=== PATIENT | male | born 1950 | race Caucasian/White ===

== ENCOUNTER → 2020-12-13 09:25 | Outpatient (BNVA) | payer MEDICARE, MEDICAID, SELFPAY | PROVIDERS: PCP Internal Medicine; Visit Provider Nurse Practitioner Family | DX: M16.11 Unilateral primary osteoarthritis, right hip (principal) | CPT/HCPCS: 99202 ==

== ENCOUNTER → 2021-01-03 09:51 | Outpatient (BNVA) | payer MEDICARE, MEDICAID, SELFPAY | PROVIDERS: PCP Internal Medicine; Visit Provider Nurse Practitioner Family | DX: M16.11 Unilateral primary osteoarthritis, right hip (principal) | CPT/HCPCS: 99212 ==

== ENCOUNTER → 2021-01-14 10:09 | Outpatient (BNVA) | payer MEDICARE, MEDICAID, SELFPAY | PROVIDERS: PCP Internal Medicine; Visit Provider Internal Medicine Cardiovascular Disease | DX: I25.10 Atherosclerotic heart disease of native coronary artery without angina pectoris (principal); I10 Essential (primary) hypertension | CPT/HCPCS: 99212 ==

== ENCOUNTER → 2021-01-16 09:56 | Outpatient (BNVA) | payer MEDICARE, MEDICAID, SELFPAY | PROVIDERS: PCP Internal Medicine; Visit Provider Family Medicine Adult Medicine | DX: M24.851 Other specific joint derangements of right hip, not elsewhere classified (principal) | CPT/HCPCS: Q3014 ==

== ENCOUNTER → 2021-02-11 09:58 | Outpatient (BNVA) | payer MEDICARE, MEDICAID, SELFPAY | PROVIDERS: PCP Nurse Practitioner Family; Visit Provider Nurse Practitioner Family | DX: M16.11 Unilateral primary osteoarthritis, right hip (principal); Z51.81 Encounter for therapeutic drug level monitoring | CPT/HCPCS: 99212 ==

== ENCOUNTER 2021-03-11 10:05 | Outpatient (REF) | payer MEDICARE, MEDICAID, SELFPAY ==
[2021-03-11 14:05] LABS: Magnesium 2.2 mg/dL (1.6-2.6); Potassium 4.2 mmol/L (3.3-5.1)
== END 2021-03-11 10:06 | disposition home or self-care (01) ==
LOC: HO.10HDL 10:05
PROVIDERS: PCP Nurse Practitioner Family; Visit Provider Nurse Practitioner Family
DX: M16.11 Unilateral primary osteoarthritis, right hip (principal); A05.9 Bacterial foodborne intoxication, unspecified; I25.10 Atherosclerotic heart disease of native coronary artery without angina pectoris; I10 Essential (primary) hypertension; E78.5 Hyperlipidemia, unspecified; F17.210 Nicotine dependence, cigarettes, uncomplicated; Z88.8 Allergy status to other drugs, medicaments and biological substances; Z87.898 Personal history of other specified conditions
CPT/HCPCS: 36415; 83735; 84132; 99212

== ENCOUNTER → 2021-04-08 10:15 | Outpatient (REF) | payer MEDICARE, MEDICAID, SELFPAY ==
--- NOTE | 2021-04-08 11:13 | ECG_ITS ---
Test Reason : 287.898 Blood Pressure : / mmHG Vent. Rate : 064 BPM Atrial Rate : 064 BPM P-R Int : 196 ms QRS Dur : 102 ms QT Int : 434 ms P-R-T Axes : 009 026 073 degrees QTc Int : 447 ms Normal sinus rhythm Nonspecific ST and T wave abnormality Abnormal ECG When compared with ECG of 01-FEB-2017 09:53, Vent. rate has decreased BY 31 BPM Criteria for Inferior infarct are no longer Present ST no longer depressed in Anterior leads T wave inversion no longer evident in Anterior leads Referred By: Vidya Jackson Electronically Signed By:ELEUTERIO SANTOS
== END ==
LOC: HO.CARD 10:15
PROVIDERS: PCP Internal Medicine; Visit Provider Nurse Practitioner Family
DX: M24.851 Other specific joint derangements of right hip, not elsewhere classified (principal); M16.11 Unilateral primary osteoarthritis, right hip; Z87.898 Personal history of other specified conditions
CPT/HCPCS: 93005; 99212

== ENCOUNTER → 2021-05-06 10:09 | Outpatient (BNVA) | payer MEDICARE, MEDICAID, SELFPAY | PROVIDERS: Visit Provider Family Medicine Adult Medicine | DX: M16.11 Unilateral primary osteoarthritis, right hip (principal) | CPT/HCPCS: 99212 ==

== ENCOUNTER → 2021-06-03 10:01 | Outpatient (BNVA) | payer MEDICARE, MEDICAID, SELFPAY | PROVIDERS: Visit Provider Family Medicine Adult Medicine | DX: G89.29 Other chronic pain (principal); M24.851 Other specific joint derangements of right hip, not elsewhere classified | CPT/HCPCS: 99212 ==

== ENCOUNTER → 2021-07-03 09:43 | Outpatient (BNVA) | payer MEDICARE, MEDICAID, SELFPAY | PROVIDERS: Visit Provider Family Medicine Adult Medicine | DX: M16.11 Unilateral primary osteoarthritis, right hip (principal); G89.29 Other chronic pain | CPT/HCPCS: 99212 ==

== ENCOUNTER → 2021-07-21 10:24 | Outpatient (BNVA) | payer MEDICARE, MEDICAID, SELFPAY | PROVIDERS: Visit Provider Internal Medicine Cardiovascular Disease | DX: I25.10 Atherosclerotic heart disease of native coronary artery without angina pectoris (principal); I10 Essential (primary) hypertension | CPT/HCPCS: 99212 ==

== ENCOUNTER → 2021-07-31 09:49 | Outpatient (BNVA) | payer MEDICARE, MEDICAID, SELFPAY | PROVIDERS: Visit Provider Family Medicine Adult Medicine | DX: Z51.81 Encounter for therapeutic drug level monitoring (principal); M16.11 Unilateral primary osteoarthritis, right hip; G89.29 Other chronic pain | CPT/HCPCS: 99212 ==

== ENCOUNTER → 2021-08-28 09:54 | Outpatient (BNVA) | payer MEDICARE, MEDICAID, SELFPAY | PROVIDERS: PCP Internal Medicine; Visit Provider Family Medicine Adult Medicine | DX: M16.11 Unilateral primary osteoarthritis, right hip (principal); G89.29 Other chronic pain; Z79.899 Other long term (current) drug therapy | CPT/HCPCS: 99212 ==

== ENCOUNTER → 2021-10-02 09:48 | Outpatient (BNVA) | payer MEDICARE, MEDICAID, SELFPAY | PROVIDERS: PCP Internal Medicine; Visit Provider Nurse Practitioner Family ==

== ENCOUNTER → 2021-11-05 09:36 | Outpatient (BNVA) | payer MEDICARE, MEDICAID, SELFPAY | PROVIDERS: PCP Internal Medicine; Visit Provider Nurse Practitioner Family | DX: G89.29 Other chronic pain (principal); M16.11 Unilateral primary osteoarthritis, right hip; Z79.891 Long term (current) use of opiate analgesic | CPT/HCPCS: 99212 ==

== ENCOUNTER → 2021-12-03 09:47 | Outpatient (BNVA) | payer MEDICARE, MEDICAID, SELFPAY | PROVIDERS: PCP Internal Medicine; Visit Provider Nurse Practitioner Family | DX: Z51.81 Encounter for therapeutic drug level monitoring (principal); M16.11 Unilateral primary osteoarthritis, right hip; G89.29 Other chronic pain | CPT/HCPCS: 99212 ==

== ENCOUNTER → 2021-12-31 10:30 | Outpatient (BNVA) | payer MEDICARE, MEDICAID, SELFPAY | PROVIDERS: PCP Internal Medicine; Visit Provider Nurse Practitioner Family | CPT/HCPCS: 99211 ==

== ENCOUNTER → 2021-12-31 10:30 | Outpatient (BNVA) | payer MEDICARE, MEDICAID, SELFPAY | PROVIDERS: PCP Internal Medicine; Visit Provider Nurse Practitioner Family | DX: Z13.89 Encounter for screening for other disorder (principal) ==

== ENCOUNTER → 2022-01-15 10:05 | Outpatient (BNVA) | payer MEDICARE, MEDICAID, SELFPAY | PROVIDERS: PCP Internal Medicine; Referring Provider Nurse Practitioner Family; Visit Provider Internal Medicine Cardiovascular Disease | DX: I25.10 Atherosclerotic heart disease of native coronary artery without angina pectoris (principal) | CPT/HCPCS: 93005; 99212 ==

== ENCOUNTER → 2022-02-12 10:32 | Outpatient (BNVA) | payer MEDICARE, MEDICAID, SELFPAY | PROVIDERS: PCP Internal Medicine; Visit Provider Anesthesiology | DX: Z51.81 Encounter for therapeutic drug level monitoring (principal); F11.20 Opioid dependence, uncomplicated | CPT/HCPCS: 99211 ==

== ENCOUNTER → 2022-03-13 10:17 | Outpatient (BNVA) | payer MEDICARE, MEDICAID, SELFPAY | PROVIDERS: PCP Internal Medicine; Visit Provider Nurse Practitioner Family | DX: Z51.81 Encounter for therapeutic drug level monitoring (principal); F11.20 Opioid dependence, uncomplicated; M16.11 Unilateral primary osteoarthritis, right hip; G89.29 Other chronic pain | CPT/HCPCS: 99212 ==

== ENCOUNTER → 2022-04-10 10:15 | Outpatient (BNVA) | payer MEDICARE, MEDICAID, SELFPAY | PROVIDERS: PCP Internal Medicine; Visit Provider Nurse Practitioner Family | DX: Z79.891 Long term (current) use of opiate analgesic (principal) | CPT/HCPCS: 99211 ==

== ENCOUNTER → 2022-04-14 16:41 | Outpatient (BNVA) | payer MEDICARE, MEDICAID, SELFPAY | PROVIDERS: PCP Internal Medicine; Visit Provider Nurse Practitioner Family | DX: M16.11 Unilateral primary osteoarthritis, right hip (principal); G89.29 Other chronic pain; R29.898 Other symptoms and signs involving the musculoskeletal system | CPT/HCPCS: Q3014 ==

== ENCOUNTER → 2022-05-08 09:46 | Outpatient (BNVA) | payer MEDICARE, MEDICAID, SELFPAY | PROVIDERS: PCP Internal Medicine; Visit Provider Nurse Practitioner Family | DX: Z51.81 Encounter for therapeutic drug level monitoring (principal); F11.20 Opioid dependence, uncomplicated; M16.11 Unilateral primary osteoarthritis, right hip; G89.29 Other chronic pain; R29.898 Other symptoms and signs involving the musculoskeletal system | CPT/HCPCS: 99212 ==

== ENCOUNTER → 2022-06-08 09:51 | Outpatient (BNVA) | payer MEDICARE, MEDICAID, SELFPAY | PROVIDERS: PCP Internal Medicine; Visit Provider Nurse Practitioner Family | DX: Z51.81 Encounter for therapeutic drug level monitoring (principal); F11.20 Opioid dependence, uncomplicated | CPT/HCPCS: 99211 ==

== ENCOUNTER → 2022-07-10 10:48 | Outpatient (BNVA) | payer MEDICARE, MEDICAID, SELFPAY | PROVIDERS: PCP Internal Medicine; Visit Provider Nurse Practitioner Family | DX: Z11.0 Encounter for screening for intestinal infectious diseases (principal) | CPT/HCPCS: 99211 ==

== ENCOUNTER → 2022-08-06 08:06 | Outpatient (BNVA) | payer MEDICARE, MEDICAID, SELFPAY | PROVIDERS: PCP Internal Medicine; Visit Provider Nurse Practitioner Family | DX: Z51.81 Encounter for therapeutic drug level monitoring (principal); F11.20 Opioid dependence, uncomplicated; M16.11 Unilateral primary osteoarthritis, right hip; R29.898 Other symptoms and signs involving the musculoskeletal system; R29.6 Repeated falls; G89.29 Other chronic pain | CPT/HCPCS: 99212 ==

== ENCOUNTER → 2022-09-10 08:52 | Outpatient (BNVA) | payer MEDICARE, MEDICAID, SELFPAY | PROVIDERS: PCP Internal Medicine; Visit Provider Nurse Practitioner Family | DX: Z51.81 Encounter for therapeutic drug level monitoring (principal); F11.20 Opioid dependence, uncomplicated; M16.11 Unilateral primary osteoarthritis, right hip; R29.898 Other symptoms and signs involving the musculoskeletal system; G89.29 Other chronic pain | CPT/HCPCS: 99212 ==

== ENCOUNTER → 2022-11-03 09:19 | Outpatient (BNVA) | payer MEDICARE, MEDICAID, SELFPAY | PROVIDERS: PCP Nurse Practitioner Family; Visit Provider Nurse Practitioner Family | DX: G89.29 Other chronic pain (principal); M25.562 Pain in left knee; M16.11 Unilateral primary osteoarthritis, right hip; R29.898 Other symptoms and signs involving the musculoskeletal system; Z79.891 Long term (current) use of opiate analgesic | CPT/HCPCS: 99212 ==

== ENCOUNTER → 2022-12-01 10:29 | Outpatient (BNVA) | payer MEDICARE, MEDICAID, SELFPAY | PROVIDERS: PCP Nurse Practitioner Family; Visit Provider Nurse Practitioner Family | DX: G89.29 Other chronic pain (principal); M25.562 Pain in left knee; M16.11 Unilateral primary osteoarthritis, right hip; R29.898 Other symptoms and signs involving the musculoskeletal system; Z79.891 Long term (current) use of opiate analgesic | CPT/HCPCS: 99212 ==

== ENCOUNTER → 2022-12-29 10:25 | Outpatient (BNVA) | payer MEDICARE, MEDICAID, SELFPAY | PROVIDERS: PCP Nurse Practitioner Family; Visit Provider Nurse Practitioner Family | DX: G89.29 Other chronic pain (principal); M16.11 Unilateral primary osteoarthritis, right hip; M25.562 Pain in left knee; R29.898 Other symptoms and signs involving the musculoskeletal system; Z79.891 Long term (current) use of opiate analgesic | CPT/HCPCS: 99212 ==

== ENCOUNTER → 2023-01-26 10:18 | Outpatient (BNVA) | payer MEDICARE, MEDICAID, SELFPAY | PROVIDERS: PCP Nurse Practitioner Family; Visit Provider Nurse Practitioner Family | DX: Z51.81 Encounter for therapeutic drug level monitoring (principal); F11.20 Opioid dependence, uncomplicated; M16.11 Unilateral primary osteoarthritis, right hip; M25.562 Pain in left knee; R29.898 Other symptoms and signs involving the musculoskeletal system; G89.29 Other chronic pain | CPT/HCPCS: 99212 ==

== ENCOUNTER → 2023-02-23 10:48 | Outpatient (BNVA) | payer MEDICARE, MEDICAID, SELFPAY | PROVIDERS: PCP Nurse Practitioner Family; Visit Provider Nurse Practitioner Family | DX: M16.11 Unilateral primary osteoarthritis, right hip (principal); M25.562 Pain in left knee; G89.29 Other chronic pain; F17.210 Nicotine dependence, cigarettes, uncomplicated; Z95.1 Presence of aortocoronary bypass graft | CPT/HCPCS: 99212 ==

== ENCOUNTER → 2023-03-25 10:15 | Outpatient (BNVA) | payer MEDICARE, MEDICAID, SELFPAY | PROVIDERS: PCP Nurse Practitioner Family; Visit Provider Nurse Practitioner Family | DX: G89.29 Other chronic pain (principal); M16.11 Unilateral primary osteoarthritis, right hip; M25.562 Pain in left knee; R29.898 Other symptoms and signs involving the musculoskeletal system; Z79.891 Long term (current) use of opiate analgesic | CPT/HCPCS: 99212 ==

== ENCOUNTER → 2023-04-23 09:46 | Outpatient (BNVA) | payer MEDICARE, MEDICAID, SELFPAY | PROVIDERS: PCP Nurse Practitioner Family; Visit Provider Nurse Practitioner Family | DX: M16.11 Unilateral primary osteoarthritis, right hip (principal); M25.562 Pain in left knee; G89.29 Other chronic pain; M24.151 Other articular cartilage disorders, right hip; F17.210 Nicotine dependence, cigarettes, uncomplicated; Z95.1 Presence of aortocoronary bypass graft; Z79.891 Long term (current) use of opiate analgesic | CPT/HCPCS: 99212 ==

== ENCOUNTER 2023-05-21 09:53 | Outpatient (AMB) | payer MEDICARE, MEDICAID, SELFPAY ==
--- NOTE | 2023-05-21 09:55 | A.OFFVIS_ITS ---
Intake Vital Signs 05/21/23 10:04 Height 5 ft 4 in Weight 146 lb BMI 25.1 BP 142/67 H Blood Pressure Location Rt brachial Position Sitting Pulse 59 Pulse Source Pulse Oximeter Pulse Oximetry (%) 97 Oxygen Delivery Method Room Air Intake Visit Reasons: Pill count Intake Note: Mac comes in today for a pill count to oxycodone-acetaminophen and a patch count to buprenorphine, patient should have 13 tablets of oxycodone- acetaminophen and presents with 15 tablets which he last took today 05/21/23 at 5am, patches should have 0 and presents with 0 with one currently on which was last placed today 05/21/23 at 5am. Pain today 05/03. Outreach Specialist Required: No Accompanied by: Self / Same As Patient Allergies lisinopril Adverse Reaction (Unknown, Verified 05/21/23 10:05) Nausea HPI HPI Comments History of Present Illness Details Patient returns today for a pill and patch count. This patient is supposed to have #13 pills and #0 Butrans patches according to the medication log signed by the nurses at [facility] for oxycodone-acetaminophen and Butrans patch that was placed on today. In his possession, patient presents with 15 pills and 0 butrans patches. He is wearing one Butrans patch. Patient reports adequate pain relief with his current regimen without noted side effects. Denies any recent cough, cold, infection, fever or other significant changes in medical history since last office visit. Reports his cataracts surgery is scheduled for next month. Denies recent hospitalizations, ER or Urgent Care visits. [facility] Medical History Acute pulmonary embolism Anxiety and depression Atherosclerosis of lower extremity with claudication Bruit of left carotid artery CAD (coronary artery disease) Chronic pain Dyslipidemia History of [place] (myocardial infarction) HTN (hypertension) Occlusion of left carotid artery Other specific joint derangements of right hip, not elsewhere classified Pulmonary embolism Surgical History S/P CABG x 4 Family History Father CHF (congestive heart failure) CVD (cardiovascular disease) Mother Diabetes Social History Household Members Other:: Lives at [place], [place] Housing: Assisted Living Facility Alcohol intake: never Patient Tobacco Use Status: Current everyday Tobacco user Cigarettes Per Day: 5 e-Cigarette/Vaping Use: Never Used Second Hand Smoke Exposure: No Current occupational status: retired 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 Alert and oriented. Mood and affect appropriate. Follows and participates in conversation appropriately. Respiratory effort is unlabored. Able to transition from sit to stand unassisted. Uses cane with ambulation. Psych Appearance: grossly normal Mental Status: mental status grossly normal Speech and movement: Normal speech and movement present Affect: normal affect Attitude: cooperative Thought process: Normal thought process present Thought content: Normal thought content present, suicidality (none), no hallucinations and No Depressive thoughts present Insight: Good insight present (Psych) Judgement: Good judgement present (Psych) Assessment & Plan Assessment & Plan (1) Chronic pain: Code(s): G89.29 - Other chronic pain (2) Osteoarthritis of right hip: Code(s): M16.11 - Unilateral primary osteoarthritis, right hip (3) Left knee pain: Code(s): M25.562 - Pain in left knee (4) Opioid contract exists: Code(s): Z79.891 - 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 Patient brought in paperwork and logs from [facility], which were scanned into chart. [facility] reviewed. Refill for Butrans was not reflected on [facility]Pat, therefore it was verified with patient's pharmacy. There is no evidence of misuse, abuse or diversion at this time. Script for oxycodone is sent with advanced date of 06/03/23 and Butrans patch at 20 mcg/hr script sent today. All questions were answered and patient is in agreement of plan. Follow up in one month for pill/patch count and sooner if needed. Medications: Changed From buprenorphine 20 mcg/hour 1 patch transdermal Q7D 28 days 4 ea 0RF pain G89.29 - Other chronic pain, M16.11 - Unilateral primary osteoarthritis, right hip, M25.562 - Pain in left knee To buprenorphine 20 mcg/hour Partial Fill upon patient request. 1 patch transdermal Q7D 4 ea 0RF pain 28 days G89.29 - Other chronic pain, M16.11 - Unilateral primary osteoarthritis, right hip, M25.562 - Pain in left knee Refilled oxycodone-acetaminophen 5-325 mg 1 tab PO DAILY PRN 30 tabs 0RF pain, severe 30 days G89.29 - Other chronic pain, M16.11 - Unilateral primary osteoarthritis, right hip Coding Level of Care Code Est Pt Level 4 (00753) Diagnoses Chronic pain G89.29 Osteoarthritis of right hip M16.11 Left knee pain M25.562 Opioid contract exists Z79.891
[2023-05-21 10:04] VITALS: BP 142/67; PULSE 59; O2SAT 97; BMI 25.1
== END 2023-05-21 10:16 | disposition home or self-care (01) ==
PROVIDERS: PCP Nurse Practitioner Family; Visit Provider Nurse Practitioner Family
DX: G89.29 Other chronic pain (principal); M16.11 Unilateral primary osteoarthritis, right hip; M25.562 Pain in left knee; Z79.891 Long term (current) use of opiate analgesic
CPT/HCPCS: 99214

== ENCOUNTER → 2023-05-21 09:53 | Outpatient (BNVA) | payer MEDICARE, MEDICAID, SELFPAY | PROVIDERS: PCP Nurse Practitioner Family; Visit Provider Nurse Practitioner Family | DX: G89.29 Other chronic pain (principal); M16.11 Unilateral primary osteoarthritis, right hip; M25.562 Pain in left knee; Z79.891 Long term (current) use of opiate analgesic | CPT/HCPCS: 99212 ==

== ENCOUNTER 2023-06-18 10:01 | Outpatient (AMB) | payer MEDICARE, MEDICAID, SELFPAY ==
--- NOTE | 2023-06-18 09:58 | MHC.OFFVIS ---
Intake Vital Signs 06/18/23 10:09 Height 5 ft 4 in Weight 149 lb BMI 25.6 BP 169/72 H Blood Pressure Location Rt brachial Position Sitting Pulse 57 Pulse Source Pulse Oximeter Pulse Oximetry (%) 96 Oxygen Delivery Method Room Air Intake Visit Reasons: PILL COUNT Intake Note: Ed comes in today for a pill count to oxycodone-acetaminophen and a patch count to buprenorphine. Patient should have 0 patches and presents with 0 patches and one currently on which was last placed today 06/18/23 at 5am. Oxycodone-acetaminophen should have 13 tablets and presents with 17 tablets which he also last took today at 5am. Pain today 06/03. 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 This patient is supposed to have #13 pills and #0 Butrans patches according to the medication log signed by the nurses at [facility] for oxycodone-acetaminophen and Butrans patch that was placed on this morning. In his possession, patient presents with 17 pills and 0 butrans patches. Patient reports mild to moderate pain relief with his current regimen without noted side effects. Denies any recent cough, cold, infection, shortness of breath, fever or other significant changes in medical history since last office visit. Reports his cataracts surgery has been rescheduled for August and December. Denies recent hospitalizations, ER or Urgent Care visits. [facility] Medical History Acute pulmonary embolism Anxiety and depression Atherosclerosis of lower extremity with claudication Bruit of left carotid artery CAD (coronary artery disease) Chronic pain Dyslipidemia History of [place] (myocardial infarction) HTN (hypertension) Occlusion of left carotid artery Other specific joint derangements of right hip, not elsewhere classified Pulmonary embolism Surgical History S/P CABG x 4 Family History Father CHF (congestive heart failure) CVD (cardiovascular disease) Mother Diabetes Social History Household Members Other:: Lives at [place], [place] Housing: Assisted Living Facility Alcohol intake: never Patient Tobacco Use Status: Current everyday Tobacco user Cigarettes Per Day: 5 e-Cigarette/Vaping Use: Never Used Second Hand Smoke Exposure: No Current occupational status: retired 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 Alert and oriented. Mood and affect appropriate. Follows and participates in conversation appropriately. Respiratory effort is unlabored. Able to transition from sit to stand unassisted. Uses cane with ambulation. Back/Spine/Pelvis Cervical Spine: cervical ROM normal and No Cervical spine tenderness Thoracic/Lumbar Spine: pain with thoraco-lumbar ROM, No thoracic spinal tenderness and No lumbar spinal tenderness Pelvis: no buttock tenderness Sacroiliac joints: bilaterally nontender Extrem General: Yes capillary refill normal, Yes no clubbing, cyanosis or edema and Yes no calf tenderness Right lower extremity: hip/thigh (Limited ROM. Right groin pain with limited I/E hip rotations. ) Psych Appearance: grossly normal Mental Status: mental status grossly normal Speech and movement: Normal speech and movement present Affect: normal affect Attitude: cooperative Thought process: Normal thought process present Thought content: Normal thought content present, suicidality (none), no hallucinations and No Depressive thoughts present Insight: Good insight present (Psych) Judgement: Good judgement present (Psych) Assessment & Plan Assessment & Plan (1) Chronic pain: Code(s): G89.29 - Other chronic pain (2) Osteoarthritis of right hip: Code(s): M16.11 - Unilateral primary osteoarthritis, right hip (3) Opioid contract exists: Code(s): Z79.891 - senior care (current) use of opiate analgesic (4) Chronic right hip pain: Code(s): M25.551 - Pain in right hip; G89.29 - Other chronic pain Plan Patient returns today for a medication count. Patient brought in paperwork and logs from [facility], which were scanned into chart. [facility]Pat reviewed. Refills for Butrans and Oxycodone were not reflected on MassPat, therefore both were verified with patient's pharmacy. There is no evidence of misuse, abuse or diversion at this time. Script for oxycodone is sent with advanced date of 07/01/23 and Butrans patch at 20 mcg/hr script sent today. All questions were answered and patient is in agreement of plan. Follow up in one month for pill/patch count and sooner if needed. Medications: Refilled oxycodone-acetaminophen 5-325 mg 1 tab PO DAILY PRN 30 tabs 0RF pain, severe 30 days G89.29 - Other chronic pain, M16.11 - Unilateral primary osteoarthritis, right hip buprenorphine 20 mcg/hour Partial Fill upon patient request. 1 patch transdermal Q7D 4 ea 0RF pain 28 days G89.29 - Other chronic pain, M16.11 - Unilateral primary osteoarthritis, right hip, M25.562 - Pain in left knee Coding Level of Care Code Est Pt Level 4 (34827) Diagnoses Chronic pain G89.29 Osteoarthritis of right hip M16.11 Opioid contract exists Z79.891 Chronic right hip pain M25.551; G89.29
[2023-06-18 10:09] VITALS: BP 169/72; PULSE 57; O2SAT 96; BMI 25.6
== END 2023-06-18 10:18 | disposition home or self-care (01) ==
PROVIDERS: PCP Nurse Practitioner Family; Visit Provider Nurse Practitioner Family
DX: G89.29 Other chronic pain (principal); M16.11 Unilateral primary osteoarthritis, right hip; Z79.891 Long term (current) use of opiate analgesic; M25.551 Pain in right hip
CPT/HCPCS: 99214

== ENCOUNTER → 2023-06-18 10:01 | Outpatient (BNVA) | payer MEDICARE, MEDICAID, SELFPAY | PROVIDERS: PCP Nurse Practitioner Family; Visit Provider Nurse Practitioner Family | DX: G89.29 Other chronic pain (principal); M25.551 Pain in right hip; M16.11 Unilateral primary osteoarthritis, right hip; Z79.891 Long term (current) use of opiate analgesic | CPT/HCPCS: 99212 ==

== ENCOUNTER 2023-07-08 10:09 | Outpatient (AMB) | payer MEDICARE, MEDICAID, SELFPAY ==
--- NOTE | 2023-07-08 10:12 | MHC.PC.OV ---
Vital Signs 07/08/23 10:15 Height 5 ft 4 in Weight 151 lb BMI 25.9 BP 124/60 Blood Pressure Location Lt brachial Position Sitting Pulse 55 Pulse Source Pulse Oximeter Pulse Oximetry (%) 95 Oxygen Delivery Method Room Air Intake Visit Reasons: 6 month follow up Allergies lisinopril Adverse Reaction (Unknown, Verified 07/08/23 10:15) Nausea Tobacco use date assessed: 01/06/23 Fall risk assessment: No Falls in past year Last assessed Fall Risk: 07/08/23 Dental Screening Dental Screen Date: 07/08/23 Did you have a dental visit in the last 12 months?: No Did you have a dental problem in the last 6 months where you did not have access to dental care?: No Was dental information given to patient?: Patient has dentist HPI 6 month follow up HPI Details Pt is here for a pre-op evaluation. He is scheduled to undergo bilat cataract surgery. Pt was previously scheduled for surgery but did not have it. Lab orders placed for unrelated reasons, though not needed for surgical clearance. PT IS CLEAR FOR SURGERY FROM MY STANDPOINT. [facility] Medical History Atherosclerosis of lower extremity with claudication Other specific joint derangements of right hip, not elsewhere classified Chronic pain Pulmonary embolism Acute pulmonary embolism Occlusion of left carotid artery Bruit of left carotid artery Dyslipidemia Anxiety and depression HTN (hypertension) CAD (coronary artery disease) History of [place] (myocardial infarction) Surgical History S/P CABG x 4 Family History Father CHF (congestive heart failure) CVD (cardiovascular disease) Mother Diabetes Social History Household Members Other:: Lives at [place], [place] Housing: Assisted Living Facility Alcohol intake: never Patient Tobacco Use Status: Current everyday Tobacco user Cigarettes Per Day: 5 e-Cigarette/Vaping Use: Never Used Second Hand Smoke Exposure: No Current occupational status: retired Current 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 How often do you have a drink containing alcohol?: Never 3. How often do you have six or more drinks on one occasion?: Never Total Score: 0 Score Reviewed/Action Taken: No TRACY-7 AMB Questionnaire TRACY-7 Date TRACY - 7 assessed: 01/06/23 Source: Developed by Drs. Ray Richards, Farhana Lloyd, Mart Martinez and colleagues, with an educational jennifer from [employer]. Review of Systems Const Denies chills and Denies fever(s) Eyes Denies blurry vision ENT Denies vertigo, Denies dizziness and Denies sore throat Card Denies chest pain at rest, Denies chest pain with activity, Denies diaphoresis, Denies dyspnea and Denies dyspnea on exertion Resp Denies cough, Denies dyspnea, Denies dyspnea on exertion and Denies wheezing GI Denies abdominal pain, Denies melena, Denies hematochezia, Denies constipation, Denies diarrhea and Denies loose stools Denies hematuria Musc Denies numbness and Denies tingling Skin/Breast Denies lesions Neuro Denies vertigo, Denies dizziness, Denies numbness and Denies tingling Psych Denies anxiety, Denies depression, Denies homicidal ideation, Denies suicidal ideation and Denies other (substance abuse) Aller/Immun Denies wheezing Physical exam (Primary Care) Vital Signs: Last Vital Signs Pulse 55 07/08/23 10:15 BP 124/60 07/08/23 10:15 Pulse Ox 95 07/08/23 10:15 Oxygen Delivery Method Room Air 07/08/23 10:15 BMI result Body Mass Index 25.9 Tobacco/Smoking Status: Tobacco use Status Tobacco use date assessed 01/06/23 07/08/23 10:13 Patient Tobacco Use Status Current everyday Tobacco 07/08/23 10:13 e-Cigarette/Vaping Use Never Used 07/08/23 10:13 Thrive Assessment: Date of Thrive Assessment Date Thrive assessed 01/06/23 07/08/23 10:13 Const General: cooperative Nutritional Appearance: well nourished Orientation/consciousness: patient oriented x3 Neck Neck: Yes no lymphadenopathy Resp Other: lungs fairly clear bilat Effort & Inspection: normal respiratory effort Cardio Rate: regular rate Rhythm: regular rhythm Heart sounds: S1 normal heart sound present, S2 normal heart sound present and Murmur heart sound present Neuro General: patient oriented x3 and moves all extremities Psych Appearance: grossly normal Mental Status: mental status grossly normal Speech and movement: Normal speech and movement present Affect: normal affect Attitude: cooperative Thought process: Normal thought process present Thought content: Normal thought content present Insight: Good insight present (Psych) Judgement: Good judgement present (Psych) Assessment and Plan Assessment & Plan (1) Preop examination: Code(s): Z01.818 - Encounter for other preprocedural examination Plan The patient agreed to the use of a medical transcription supervisor for this encounter. Scribed for LORENZO Carrillo by Brianna Caballero medical transcription supervisor, on 07/08/2023 at 10:35 EST. Coding Level of Care Code Est Pt Prev Care >65y(78174) Diagnoses Preop examination Z01.818
[2023-07-08 10:15] VITALS: BP 124/60; PULSE 55; O2SAT 95; BMI 25.9
== END 2023-07-08 11:17 | disposition home or self-care (01) ==
PROVIDERS: PCP Nurse Practitioner Family; Visit Provider Nurse Practitioner Family
DX: H26.9 Unspecified cataract (principal); Z01.818 Encounter for other preprocedural examination
CPT/HCPCS: 99213

== ENCOUNTER 2023-07-16 09:33 | Outpatient (AMB) | payer MEDICARE, MEDICAID, SELFPAY ==
--- NOTE | 2023-07-16 09:38 | A.OFFVIS_ITS ---
Intake Vital Signs 07/16/23 09:53 Height 5 ft 4 in Weight 147 lb BMI 25.2 BP 155/66 H Blood Pressure Location Rt brachial Position Sitting Pulse 58 Pulse Source Pulse Oximeter Pulse Oximetry (%) 97 Oxygen Delivery Method Room Air Intake Visit Reasons: PILL COUNT Intake Note: Mac comes in today for a pill count to oxycodone-acetaminophen and a patch count to buprenorphine, patient should have 0 patches and presents with 0 patches with 1 currently on which was last placed on 07/16/23, oxycodone- acetaminophen should have 15 tablets and presents with 20 tablets which he last took today 07/16/23 at 5am. Pain today 5/10. 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 This patient is supposed to have #15 pills and #0 Butrans patches according to the medication log signed by the nurses at [facility] for oxycodone-acetaminophen and Butrans patch that was placed on this morning. In his possession, patient presents with #20 pills and #0 butrans patches. Patient reports adequate pain relief on his current regimen without noted side effects. Denies any recent cough, fever, cold, infection, shortness of breath, nausea, constipation, dizziness, weakness, or other significant changes in medical history since last office visit. Reports his cataracts surgery has been scheduled for August and December. Denies recent hospitalizations, ER or Urgent Care visits. [facility] Medical History Atherosclerosis of lower extremity with claudication Other specific joint derangements of right hip, not elsewhere classified Chronic pain Pulmonary embolism Acute pulmonary embolism Occlusion of left carotid artery Bruit of left carotid artery Dyslipidemia Anxiety and depression HTN (hypertension) CAD (coronary artery disease) History of [place] (myocardial infarction) Surgical History S/P CABG x 4 Family History Father CHF (congestive heart failure) CVD (cardiovascular disease) Mother Diabetes Social History Household Members Other:: Lives at [place], [place] Housing: Assisted Living Facility Alcohol intake: never Patient Tobacco Use Status: Current everyday Tobacco user Cigarettes Per Day: 5 e-Cigarette/Vaping Use: Never Used Second Hand Smoke Exposure: No Current occupational status: retired 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 Alert and oriented. Mood and affect appropriate. Follows and participates in conversation appropriately. Respiratory effort is unlabored. Able to transition from sit to stand unassisted. Uses cane with ambulation. Psych Appearance: grossly normal Mental Status: mental status grossly normal Speech and movement: Normal speech and movement present Affect: normal affect Attitude: cooperative Thought process: Normal thought process present Thought content: Normal thought content present, suicidality (none), no hallucinations and No Depressive thoughts present Insight: Good insight present (Psych) Judgement: Good judgement present (Psych) Results Reviewed Results Reviewed: No imaging available for review. Assessment & Plan Assessment & Plan (1) Chronic pain: Code(s): G89.29 - Other chronic pain (2) Osteoarthritis of right hip: Code(s): M16.11 - Unilateral primary osteoarthritis, right hip (3) Opioid contract exists: Code(s): Z79.891 - skilled nursing (current) use of opiate analgesic (4) Chronic right hip pain: Code(s): M25.551 - Pain in right hip; G89.29 - Other chronic pain Plan Patient returns today for a medication count. Patient brought in paperwork and logs from [facility], which were scanned into chart. [facility]Pat reviewed, oxycodone refill on 07/01/23 was not reflected on MassPat, confirmed with [facility]. There is no evidence of misuse, abuse or diversion at this time. Script for oxycodone is sent with advanced date of 07/30/23 and Butrans patch at 20 mcg/hr script sent today. Patient has upcoming cataracts surgery in August and December. All questions were answered and patient is in agreement of plan. Follow up in one month for pill/patch count and sooner if needed. Medications: Refilled buprenorphine 20 mcg/hour Partial Fill upon patient request. 1 patch transdermal Q7D 4 ea 0RF pain 28 days G89.29 - Other chronic pain, M16.11 - Unilateral primary osteoarthritis, right hip, M25.562 - Pain in left knee oxycodone-acetaminophen 5-325 mg 1 tab PO DAILY PRN 30 tabs 0RF pain, severe 30 days G89.29 - Other chronic pain, M16.11 - Unilateral primary osteoarthritis, right hip Coding Level of Care Code Est Pt Level 4 (43908) Diagnoses Chronic pain G89.29 Osteoarthritis of right hip M16.11 Opioid contract exists Z79.891 Chronic right hip pain M25.551; G89.29
[2023-07-16 09:53] VITALS: BP 155/66; PULSE 58; O2SAT 97; BMI 25.2
== END 2023-07-16 10:24 | disposition home or self-care (01) ==
PROVIDERS: PCP Nurse Practitioner Family; Visit Provider Nurse Practitioner Family
DX: G89.29 Other chronic pain (principal); M16.11 Unilateral primary osteoarthritis, right hip; Z79.891 Long term (current) use of opiate analgesic
CPT/HCPCS: 99214

== ENCOUNTER → 2023-07-16 09:33 | Outpatient (BNVA) | payer MEDICARE, MEDICAID, SELFPAY | PROVIDERS: PCP Nurse Practitioner Family; Visit Provider Nurse Practitioner Family | DX: G89.29 Other chronic pain (principal); M25.551 Pain in right hip; M16.11 Unilateral primary osteoarthritis, right hip; Z79.891 Long term (current) use of opiate analgesic | CPT/HCPCS: 99212 ==

== ENCOUNTER 2023-08-13 11:26 | Outpatient (AMB) | payer MEDICARE, MEDICAID, SELFPAY ==
--- NOTE | 2023-08-13 11:31 | MHC.OFFVIS ---
Intake Vital Signs 08/13/23 11:45 Height 5 ft 4 in BP 144/67 H Blood Pressure Location Lt brachial Position Sitting Pulse 95 Pulse Source Pulse Oximeter Pulse Oximetry (%) 97 Oxygen Delivery Method Room Air Intake Visit Reasons: PILL COUNT Intake Note: Mac comes in today for a pill count to oxycodone-acetaminophen and a patch count to buprenorphine. Patient should have 16 tablets of oxycodone-acetaminophen and presents with 22 tablets which he last took today 08/13/23, Buprenorphone should have 0 and presents with 0 patches and one currently on which was last placed today 08/13/23. Pain today 05/03. Clinical Trials Systems Administrator Required: No Accompanied by: Self / Same As Patient Allergies lisinopril Adverse Reaction (Unknown, Verified 08/13/23 11:46) Nausea HPI HPI Comments History of Present Illness Details Patient returns today for a pill and patch count. This patient is supposed to have #16 pills and #0 Butrans patches according to the medication log signed by the nurses at [facility] for oxycodone-acetaminophen and Butrans patch that was placed on today. In his possession, patient presents with #22 pills and #0 butrans patches. Patient reports mild pain relief on his current regimen without noted side effects. He notes increased pain in his right hip with cold rainy weather. Denies any recent cough, fever, cold, infection, shortness of breath, nausea, constipation, dizziness, weakness, or other significant changes in medical history since last office visit. Reports his cataracts surgery has been scheduled for this August and next year in December. He is aware to notify our office if there is any changes in is procedure dates if they will overlap with his pill count visits. [facility] Medical History Atherosclerosis of lower extremity with claudication Other specific joint derangements of right hip, not elsewhere classified Chronic pain Pulmonary embolism Acute pulmonary embolism Occlusion of left carotid artery Bruit of left carotid artery Dyslipidemia Anxiety and depression HTN (hypertension) CAD (coronary artery disease) History of [place] (myocardial infarction) Surgical History S/P CABG x 4 Family History Father CHF (congestive heart failure) CVD (cardiovascular disease) Mother Diabetes Social History Household Members Other:: Lives at [place], [place] Housing: Assisted Living Facility Alcohol intake: never Patient Tobacco Use Status: Current everyday Tobacco user Cigarettes Per Day: 5 e-Cigarette/Vaping Use: Never Used Second Hand Smoke Exposure: No Current occupational status: retired Current 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 Alert and oriented. Mood and affect appropriate. Follows and participates in conversation appropriately. Respiratory effort is unlabored. Able to transition from sit to stand unassisted. Uses cane with ambulation. Back/Spine/Pelvis Cervical Spine: cervical ROM normal and No Cervical spine tenderness Thoracic/Lumbar Spine: pain with thoraco-lumbar ROM, No thoracic spinal tenderness and No lumbar spinal tenderness Pelvis: no buttock tenderness Sacroiliac joints: bilaterally nontender Extrem General: Yes capillary refill normal, Yes no clubbing, cyanosis or edema and Yes no calf tenderness Right lower extremity: hip/thigh (Limited ROM. Right groin pain with limited I/E hip rotations. ) Psych Appearance: grossly normal Mental Status: mental status grossly normal Speech and movement: Normal speech and movement present Affect: normal affect Attitude: cooperative Thought process: Normal thought process present Thought content: Normal thought content present, suicidality (none), no hallucinations and No Depressive thoughts present Insight: Good insight present (Psych) Judgement: Good judgement present (Psych) Assessment & Plan Assessment & Plan (1) Chronic pain: Code(s): G89.29 - Other chronic pain (2) Osteoarthritis of right hip: Code(s): M16.11 - Unilateral primary osteoarthritis, right hip (3) Opioid contract exists: Code(s): 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 Patient brought in paperwork and logs from [facility], which were scanned into chart. [employer] reviewed. There is no evidence of misuse, abuse or diversion at this time. Script for oxycodone is sent with advanced date of 08/29/23 and Butrans patch at 20 mcg/hr script sent today. Patient has upcoming cataracts surgery in August and December and will notify our office with any changes in procedure dates. All questions were answered and patient is in agreement of plan. Follow up in one month for pill/patch count and sooner if needed. Medications: Refilled buprenorphine 20 mcg/hour Partial Fill upon patient request. 1 patch transdermal Q7D 4 ea 0RF pain 28 days G89.29 - Other chronic pain, M16.11 - Unilateral primary osteoarthritis, right hip, M25.562 - Pain in left knee oxycodone-acetaminophen 5-325 mg 1 tab PO DAILY PRN 30 tabs 0RF pain, severe 30 days G89.29 - Other chronic pain, M16.11 - Unilateral primary osteoarthritis, right hip Coding Level of Care Code Est Pt Level 4 (45076) Diagnoses Chronic pain G89.29 Osteoarthritis of right hip M16.11 Opioid contract exists Z79.891 Chronic right hip pain M25.551; G89.29
[2023-08-13 11:45] VITALS: BP 144/67; PULSE 95; O2SAT 97
== END 2023-08-13 11:49 | disposition home or self-care (01) ==
PROVIDERS: PCP Nurse Practitioner Family; Visit Provider Nurse Practitioner Family
DX: G89.29 Other chronic pain (principal); M16.11 Unilateral primary osteoarthritis, right hip; Z79.891 Long term (current) use of opiate analgesic; M25.551 Pain in right hip
CPT/HCPCS: 99214

== ENCOUNTER → 2023-08-13 11:26 | Outpatient (BNVA) | payer MEDICARE, MEDICAID, SELFPAY | PROVIDERS: PCP Nurse Practitioner Family; Visit Provider Nurse Practitioner Family | DX: M16.11 Unilateral primary osteoarthritis, right hip (principal); M25.551 Pain in right hip; G89.29 Other chronic pain; F17.210 Nicotine dependence, cigarettes, uncomplicated; Z79.891 Long term (current) use of opiate analgesic | CPT/HCPCS: 99212 ==

== ENCOUNTER 2023-09-10 10:52 | Outpatient (AMB) | payer MEDICARE, MEDICAID, SELFPAY ==
--- NOTE | 2023-09-10 10:57 | MHC.OFFVIS ---
Intake Vital Signs 09/10/23 11:29 Height 5 ft 4 in Weight 147 lb BMI 25.2 BP 121/59 L Blood Pressure Location Rt brachial Position Sitting Pulse 61 Pulse Source Pulse Oximeter Pulse Oximetry (%) 98 Oxygen Delivery Method Room Air Intake Visit Reasons: PILL COUNT/Confirmed Intake Note: Mac comes in today for a pill count to oxycodone-acetaminophen and a patch count to buprenorphine. Again patient was not given proper documentation for count by [facility]. Per phone call with Mayela from [facility] patient has 24 tablets of oxycodone-acetaminophen which was last given today 09/10/23 at 6 am and 0 patches of buprenorphine which was placed at also today 09/10/23. Waiting to receive proper documentation to be faxed from [facility]. Manager Corporate Marketing Required: No Accompanied by: Self / Same As Patient Allergies lisinopril Adverse Reaction (Unknown, Verified 09/10/23 11:04) Nausea HPI HPI Comments History of Present Illness Details Patient returns today for a pill and patch count. This patient is supposed to have #19 pills and #0 Butrans patches according to the medication log signed by the nurses at [facility] for oxycodone-acetaminophen and Butrans patch that was placed on today. In his possession, patient presents with #24 pills and #0 butrans patches. Patient reports adequate analgesia on his current regimen without noted side effects. He notes increased pain in his right hip with cold rainy weather. Denies any recent cough, fever, cold, infection, shortness of breath, nausea, constipation, dizziness, weakness, or other significant changes in medical history since last office visit. [facility] Medical History Atherosclerosis of lower extremity with claudication Other specific joint derangements of right hip, not elsewhere classified Chronic pain Pulmonary embolism Acute pulmonary embolism Occlusion of left carotid artery Bruit of left carotid artery Dyslipidemia Anxiety and depression HTN (hypertension) CAD (coronary artery disease) History of [place] (myocardial infarction) Surgical History S/P CABG x 4 Family History Father CHF (congestive heart failure) CVD (cardiovascular disease) Mother Diabetes Social History Household Members Other:: Lives at [facility] [place] Housing: Assisted Living Facility Alcohol intake: never Patient Tobacco Use Status: Current everyday Tobacco user Cigarettes Per Day: 5 e-Cigarette/Vaping Use: Never Used Second Hand Smoke Exposure: No Current occupational status: retired 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 No acute distress. Alert and oriented. Mood and affect appropriate. Follows and participates in conversation appropriately. Respiratory effort is unlabored. No cough. Able to transition from sit to stand unassisted. Uses cane with ambulation. Psych Appearance: grossly normal Mental Status: mental status grossly normal Speech and movement: Normal speech and movement present Affect: normal affect Attitude: cooperative Thought process: Normal thought process present Thought content: Normal thought content present, suicidality (none), no hallucinations and No Depressive thoughts present Insight: Good insight present (Psych) Judgement: Good judgement present (Psych) Assessment & Plan Assessment & Plan (1) Chronic pain: Code(s): G89.29 - Other chronic pain (2) Osteoarthritis of right hip: Code(s): M16.11 - Unilateral primary osteoarthritis, right hip (3) Opioid contract exists: Code(s): 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 Patient brought in paperwork and logs from [facility], which were scanned into chart. [employer] reviewed. There is no evidence of misuse, abuse or diversion at this time. Script for oxycodone is sent with advanced date of 09/28/23 and Butrans patch at 20 mcg/hr script sent today. Patient has pending cataracts surgery and will notify our office with any changes in procedure dates. All questions were answered and patient is in agreement of plan. Follow up in one month for pill/patch count and sooner if needed. Medications: Refilled oxycodone-acetaminophen 5-325 mg 1 tab PO DAILY 30 days PRN 30 tabs 0RF pain, severe G89.29 - Other chronic pain, M16.11 - Unilateral primary osteoarthritis, right hip buprenorphine 20 mcg/hour Partial Fill upon patient request. 1 patch transdermal Q7D 28 days 4 ea 0RF pain G89.29 - Other chronic pain, M16.11 - Unilateral primary osteoarthritis, right hip, M25.562 - Pain in left knee Coding Level of Care Code Est Pt Level 4 (64311) Diagnoses Chronic pain G89.29 Osteoarthritis of right hip M16.11 Opioid contract exists Z79.891 Chronic right hip pain M25.551; G89.29
[2023-09-10 11:29] VITALS: BP 121/59; PULSE 61; O2SAT 98; BMI 25.2
== END 2023-09-10 11:37 | disposition home or self-care (01) ==
PROVIDERS: PCP Nurse Practitioner Family; Visit Provider Nurse Practitioner Family
DX: G89.29 Other chronic pain (principal); M16.11 Unilateral primary osteoarthritis, right hip; Z79.891 Long term (current) use of opiate analgesic; M25.551 Pain in right hip
CPT/HCPCS: 99214

== ENCOUNTER → 2023-09-10 10:52 | Outpatient (BNVA) | payer MEDICARE, MEDICAID, SELFPAY | PROVIDERS: PCP Nurse Practitioner Family; Visit Provider Nurse Practitioner Family | DX: Z51.81 Encounter for therapeutic drug level monitoring (principal); F11.20 Opioid dependence, uncomplicated; M16.11 Unilateral primary osteoarthritis, right hip; M25.551 Pain in right hip; G89.29 Other chronic pain; Z79.891 Long term (current) use of opiate analgesic | CPT/HCPCS: 99212 ==

== ENCOUNTER 2023-10-08 09:12 | Outpatient (AMB) | payer MEDICARE, MEDICAID, SELFPAY ==
--- NOTE | 2023-10-08 09:14 | MHC.OFFVIS ---
Intake Vital Signs 10/08/23 09:33 Height 5 ft 4 in Weight 146 lb 2 oz BMI 25.1 BP 155/69 H Blood Pressure Location Rt brachial Position Sitting Pulse 60 Pulse Source Pulse Oximeter Pulse Oximetry (%) 98 Oxygen Delivery Method Room Air Intake Visit Reasons: PILL COUNT/lvm Intake Note: Mac comes in today for a pill count to oxycodone-acetaminophen and a patch count to buprenophine. Patient should have 14 tablets of oxycodone-acetaminophen and presents with 27 tablets, buprenorphine should have 0 patches with 1 on but patient states that he does not have any on and the last time it was placed was on 10/01/23. Patient states that he was told that his box was empty and did not have any left. Per the documentation that was provided patient should still have one patch left, per phone call to [facility] they state he does not have any left, what do you want me to do . Project Management Analyst Required: No Accompanied by: Self / Same As Patient Allergies lisinopril Adverse Reaction (Unknown, Verified 10/08/23 09:38) Nausea HPI HPI Comments History of Present Illness Details Patient returns today for a pill and patch count. This patient is supposed to have #14 pills and #0 Butrans patches but have one on according to the medication log signed by the nurses at [facility] for oxycodone-acetaminophen and Butrans patch. In his possession, patient presents with #27 pills and #0 butrans patches and does not have any patches on. Patient reports no patch was placed on this morning at 0400 along with his usual medications. He reports asking his nurse at [facility] for Butrans patch and was told he does not have any. Patient reports he keeps track of his opioid medication on his calendar in his room and was expecting one more patch remaining to be applied today which would be consistent with his nurses log documentation. Our staff has reached out to [facility] this morning at least four times. Unfortunately, nursing service administrator was not available and voicemail was left. Patient reports inadequate analgesia on his current regimen without noted side effects as he did not have Butrans patch since yesterday. Rates his pain at 7-8/10, worse in his right hip due to significant OA. Denies any recent cough, fever, cold, infection, shortness of breath, nausea, constipation, dizziness, weakness, or other significant changes in medical history since last office visit. Patient reports that his right cataract surgery finally happened last month ago and left eye cataract surgery is scheduled for 10/26/23. He is very pleased with outcome of his right eye procedure and able to see much better. [facility] Medical History Atherosclerosis of lower extremity with claudication Other specific joint derangements of right hip, not elsewhere classified Chronic pain Pulmonary embolism Acute pulmonary embolism Occlusion of left carotid artery Bruit of left carotid artery Dyslipidemia Anxiety and depression HTN (hypertension) CAD (coronary artery disease) History of [place] (myocardial infarction) Surgical History S/P CABG x 4 Family History Father CHF (congestive heart failure) CVD (cardiovascular disease) Mother Diabetes Social History Household Members Other:: Lives at [place], [place] Housing: Assisted Living Facility Alcohol intake: never Patient Tobacco Use Status: Current everyday Tobacco user Cigarettes Per Day: 5 e-Cigarette/Vaping Use: Never Used Second Hand Smoke Exposure: No Current occupational status: retired 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 Alert and oriented. Mood and affect appropriate. Follows and participates in conversation appropriately. Respiratory effort is unlabored. Able to transition from sit to stand unassisted. Uses cane with ambulation. Eyes General: appearance normal, both eyes and all related structures Back/Spine/Pelvis Cervical Spine: cervical ROM normal and No Cervical spine tenderness Thoracic/Lumbar Spine: pain with thoraco-lumbar ROM, No thoracic spinal tenderness and No lumbar spinal tenderness Pelvis: no buttock tenderness Sacroiliac joints: bilaterally nontender Extrem General: Yes capillary refill normal, Yes no clubbing, cyanosis or edema and Yes no calf tenderness Right lower extremity: hip/thigh (Limited ROM. Right groin pain with limited I/E hip rotations. ) Psych Appearance: grossly normal Mental Status: mental status grossly normal Speech and movement: Normal speech and movement present Affect: normal affect Attitude: cooperative Thought process: Normal thought process present Thought content: Normal thought content present, suicidality (none), no hallucinations and No Depressive thoughts present Insight: Good insight present (Psych) Judgement: Good judgement present (Psych) Assessment & Plan Assessment & Plan (1) Chronic pain: Code(s): G89.29 - Other chronic pain (2) Osteoarthritis of right hip: Code(s): M16.11 - Unilateral primary osteoarthritis, right hip (3) Opioid contract exists: Code(s): Z79.891 - residential (current) use of opiate analgesic (4) Chronic right hip pain: Code(s): M25.551 - Pain in right hip; G89.29 - Other chronic pain Plan Patient returns today for a medication count. Patient brought in paperwork and logs from [facility], which were scanned into chart. [employer]Pat reviewed. There is no evidence of misuse, abuse or diversion at this time however his documentation is not consistent for Butrans patch and we have call placed to [facility] regarding this inconsistency. Script for oxycodone was sent with advanced date of 11/02/23 and Butrans patch at 20 mcg/hr script sent today. All questions were answered and patient is in agreement of plan. Follow up in one month for pill/patch count and sooner if needed. Medications: Refilled oxycodone-acetaminophen 5-325 mg 1 tab PO DAILY 30 days PRN 30 tabs 0RF pain, severe G89.29 - Other chronic pain, M16.11 - Unilateral primary osteoarthritis, right hip buprenorphine 20 mcg/hour Partial Fill upon patient request. 1 patch transdermal Q7D 4 ea 0RF pain 28 days G89.29 - Other chronic pain, M16.11 - Unilateral primary osteoarthritis, right hip Coding Level of Care Code Est Pt Level 4 (41964) Diagnoses Chronic pain G89.29 Osteoarthritis of right hip M16.11 Opioid contract exists Z79.891 Chronic right hip pain M25.551; G89.29
[2023-10-08 09:33] VITALS: BP 155/69; PULSE 60; O2SAT 98; BMI 25.1
== END 2023-10-08 09:45 | disposition home or self-care (01) ==
PROVIDERS: PCP Nurse Practitioner Family; Visit Provider Nurse Practitioner Family
DX: G89.29 Other chronic pain (principal); M16.11 Unilateral primary osteoarthritis, right hip; Z79.891 Long term (current) use of opiate analgesic; M25.551 Pain in right hip
CPT/HCPCS: 99214

== ENCOUNTER → 2023-10-08 09:12 | Outpatient (BNVA) | payer MEDICARE, MEDICAID, SELFPAY | PROVIDERS: PCP Nurse Practitioner Family; Visit Provider Nurse Practitioner Family | DX: Z51.81 Encounter for therapeutic drug level monitoring (principal); F11.20 Opioid dependence, uncomplicated; M16.11 Unilateral primary osteoarthritis, right hip; M25.551 Pain in right hip; G89.29 Other chronic pain; Z79.891 Long term (current) use of opiate analgesic | CPT/HCPCS: 99212 ==

== ENCOUNTER 2023-11-05 09:30 | Outpatient (AMB) | payer MEDICARE, MEDICAID, SELFPAY ==
--- NOTE | 2023-11-05 09:33 | A.OFFVIS_ITS ---
Intake Vital Signs 11/05/23 09:49 Height 5 ft 4 in Weight 148 lb BMI 25.4 BP 136/64 Blood Pressure Location Rt brachial Position Sitting Pulse 68 Pulse Source Pulse Oximeter Pulse Oximetry (%) 97 Oxygen Delivery Method Room Air Intake Visit Reasons: PILL COUNT/random UDS/confirmed Intake Note: Mac comes in today for a pill count to oxycodone-acetaminophen and a patch count to buprenorphine. Patient should have 39 tablets and presents with 58 tablets which he last took today 11/05/23 at 5 am, buprenorphine should have 0 and presents with 0 with one currently on which was last placed today also at 5am. Ed will also go for a random UDS, aware that he will need to go to the lab on the first floor of this building today 11/05/23 before 12pm. Mac signed updated opioid contract in office today 11/05/23. Signed copy was provided to patient. Chaplain Required: No Accompanied by: Self / Same As Patient Allergies lisinopril Adverse Reaction (Unknown, Verified 11/05/23 09:55) Nausea HPI HPI Comments History of Present Illness Details Patient returns today for a pill and patch count. This patient is supposed to have #39 pills and #0 Butrans patches according to the medication log signed by the nurses at [facility] for oxycodone-acetaminophen and Butrans patch. In his possession, patient presents with #58 pills and #0 butrans patches and has one patch on. Patient reports adequate analgesia on his current regimen without noted side effects. Rates his pain at 5-6/10, with right hip pain due to advanced OA. Denies any recent cough, fever, cold, infection, shortness of breath, nausea, constipation, dizziness, weakness, or other significant changes in medical history since last office visit. Patient reports he completed both cataracts surgeries and is awaiting script for reading glasses. He is very pleased with outcome of his eye procedures and able to see much better. [facility] Medical History Atherosclerosis of lower extremity with claudication Other specific joint derangements of right hip, not elsewhere classified Chronic pain Pulmonary embolism Acute pulmonary embolism Occlusion of left carotid artery Bruit of left carotid artery Dyslipidemia Anxiety and depression HTN (hypertension) CAD (coronary artery disease) History of [place] (myocardial infarction) Surgical History S/P CABG x 4 Family History Father CHF (congestive heart failure) CVD (cardiovascular disease) Mother Diabetes Social History Household Members Other:: Lives at [place], [place] Housing: Assisted Living Facility Alcohol intake: never Patient Tobacco Use Status: Current everyday Tobacco user Cigarettes Per Day: 5 e-Cigarette/Vaping Use: Never Used Second Hand Smoke Exposure: No Current occupational status: retired 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 Alert and oriented. Mood and affect appropriate. Follows and participates in conversation appropriately. Respiratory effort is unlabored. Able to transition from sit to stand unassisted. Uses cane with ambulation. Eyes General: appearance normal, both eyes and all related structures Back/Spine/Pelvis Cervical Spine: cervical ROM normal and No Cervical spine tenderness Thoracic/Lumbar Spine: pain with thoraco-lumbar ROM, No thoracic spinal tenderness and No lumbar spinal tenderness Pelvis: no buttock tenderness Sacroiliac joints: bilaterally nontender Extrem General: Yes capillary refill normal, Yes no clubbing, cyanosis or edema and Yes no calf tenderness Right lower extremity: hip/thigh (Limited ROM. Right groin pain with limited I/E hip rotations. ) Psych Appearance: grossly normal Mental Status: mental status grossly normal Speech and movement: Normal speech and movement present Affect: normal affect Attitude: cooperative Thought process: Normal thought process present Thought content: Normal thought content present, suicidality (none), no hallucinations and No Depressive thoughts present Insight: Good insight present (Psych) Judgement: Good judgement present (Psych) Results Reviewed Results Reviewed: No imaging available for review. Assessment & Plan Assessment & Plan (1) Chronic pain: Code(s): G89.29 - Other chronic pain (2) Osteoarthritis of right hip: Code(s): M16.11 - Unilateral primary osteoarthritis, right hip (3) Opioid contract exists: Code(s): Z79.891 - assisted (current) use of opiate analgesic (4) Chronic right hip pain: Code(s): M25.551 - Pain in right hip; G89.29 - Other chronic pain Plan Patient returns today for a medication count. Patient brought in paperwork and logs from [facility], which were scanned into chart. [employer]Pat reviewed. There is no evidence of misuse, abuse or diversion at this time however his documentation is not consistent for Butrans patch and we have call placed to [facility] regarding this inconsistency. Script for oxycodone was sent with advanced date of 12/31/23 and Butrans patch at 20 mcg/hr script sent today. Will obtain random UDS today. All questions were answered and patient is in agreement of plan. F ollow up in one month for pill/patch count and sooner if needed. Medications: Refilled oxycodone-acetaminophen 5-325 mg 1 tab PO DAILY 30 days PRN 30 tabs 0RF pain, severe G89.29 - Other chronic pain, M16.11 - Unilateral primary osteoarthritis, right hip buprenorphine 20 mcg/hour Partial Fill upon patient request. 1 patch transdermal Q7D 4 ea 0RF pain 28 days G89.29 - Other chronic pain, M16.11 - Unilateral primary osteoarthritis, right hip Coding Level of Care Code Est Pt Level 4 (20485) Diagnoses Chronic pain G89.29 Osteoarthritis of right hip M16.11 Opioid contract exists Z79.891 Chronic right hip pain M25.551; G89.29
[2023-11-05 09:49] VITALS: BP 136/64; PULSE 68; O2SAT 97; BMI 25.4
== END 2023-11-05 10:02 | disposition home or self-care (01) ==
PROVIDERS: PCP Nurse Practitioner Family; Visit Provider Nurse Practitioner Family
DX: G89.29 Other chronic pain (principal); M16.11 Unilateral primary osteoarthritis, right hip; Z79.891 Long term (current) use of opiate analgesic; M25.551 Pain in right hip
CPT/HCPCS: 99214

== ENCOUNTER → 2023-11-05 09:30 | Outpatient (BNVA) | payer MEDICARE, MEDICAID, SELFPAY | PROVIDERS: PCP Nurse Practitioner Family; Visit Provider Nurse Practitioner Family | DX: G89.29 Other chronic pain (principal); M25.551 Pain in right hip; M16.11 Unilateral primary osteoarthritis, right hip; Z79.891 Long term (current) use of opiate analgesic | CPT/HCPCS: 99212 ==

== ENCOUNTER 2023-12-03 09:25 | Outpatient (AMB) | payer MEDICARE, MEDICAID, SELFPAY ==
--- NOTE | 2023-12-03 09:27 | MHC.OFFVIS ---
Intake Vital Signs 12/03/23 09:35 Height 5 ft 4 in Weight 148 lb 6 oz BMI 25.5 BP 122/60 Blood Pressure Location Rt brachial Position Sitting Pulse 77 Pulse Source Pulse Oximeter Pulse Oximetry (%) 98 Oxygen Delivery Method Room Air Intake Visit Reasons: Pill count/confirmed Intake Note: Ed comes in today for a pill count to oxycodone and a patch count to buprenorphine, patient should have 0 tablets of oxycodone and presents with 30 tablets which he last took today 12/03/23, buprenorphine should have 0 patches and resents with 0 patches and one currently on which was last placed today 12/03/23 at 5am. Pain today 6/10. Master Ocean Required: No Accompanied by: Self / Same As Patient Allergies lisinopril Adverse Reaction (Unknown, Verified 12/03/23 09:35) Nausea HPI HPI Comments History of Present Illness Details Patient returns today for a pill and patch count. This patient is supposed to have #0pills and #0 Butrans patches according to the medication log signed by the nurses at [facility] for oxycodone-acetaminophen and Butrans patch. In his possession, patient presents with #30 pills and #0 butrans patches and has one patch on which was place this morning. Patient reports adequate analgesia on his current regimen without noted side effects except increased left leg pain due to a recent fall during a Fire Drill. Patient declined xray or interventional treatments to address his left leg pain. Rates his pain at 6/10, reports his chronic right hip pain due to advanced OA is more troublesome than left side. Denies radicular back pain. Denies any recent cough, fever, cold, infection, shortness of breath, nausea, constipation, dizziness, weakness, or any other significant changes in medical history since last office visit. [facility] Medical History Atherosclerosis of lower extremity with claudication Other specific joint derangements of right hip, not elsewhere classified Chronic pain Pulmonary embolism Acute pulmonary embolism Occlusion of left carotid artery Bruit of left carotid artery Dyslipidemia Anxiety and depression HTN (hypertension) CAD (coronary artery disease) History of [place] (myocardial infarction) Surgical History S/P CABG x 4 Family History Father CHF (congestive heart failure) CVD (cardiovascular disease) Mother Diabetes Social History Household Members Other:: Lives at [place], [place] Housing: Assisted Living Facility Alcohol intake: never Patient Tobacco Use Status: Current everyday Tobacco user Cigarettes Per Day: 5 e-Cigarette/Vaping Use: Never Used Second Hand Smoke Exposure: No Current occupational status: retired 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 Alert and oriented. Mood and affect appropriate. Follows and participates in conversation appropriately. Respiratory effort is unlabored. Able to transition from sit to stand unassisted. Uses cane with ambulation. Back/Spine/Pelvis Cervical Spine: cervical ROM normal and No Cervical spine tenderness Thoracic/Lumbar Spine: thoracic and lumbar spine normal to inspection, Lasegue's sign negative, straight leg raise negative bilaterally, pain with thoraco-lumbar ROM, No thoracic spinal tenderness and lumbar spinal tenderness at L4 and at L5 Pelvis: buttock tenderness on the left Sacroiliac joints: bilaterally tender to palpation Extrem General: Yes capillary refill normal, Yes no clubbing, cyanosis or edema and Yes no calf tenderness Right lower extremity: hip/thigh (Limited ROM. Right groin pain with limited I/E hip rotations. ) Psych Appearance: grossly normal Mental Status: mental status grossly normal Speech and movement: Normal speech and movement present Affect: normal affect Attitude: cooperative Thought process: Normal thought process present Thought content: Normal thought content present, suicidality (none), no hallucinations and No Depressive thoughts present Insight: Good insight present (Psych) Judgement: Good judgement present (Psych) Results Reviewed Results Reviewed: No imaging available for review. Assessment & Plan Assessment & Plan (1) Chronic pain: Code(s): G89.29 - Other chronic pain (2) Osteoarthritis of right hip: Code(s): M16.11 - Unilateral primary osteoarthritis, right hip (3) Opioid contract exists: Code(s): Z79.891 - custodial (current) use of opiate analgesic (4) Chronic right hip pain: Code(s): M25.551 - Pain in right hip; G89.29 - Other chronic pain (5) Recurrent falls: Code(s): R29.6 - Repeated falls Plan Patient returns today for a medication count. Patient brought in paperwork and logs from [facility], which were scanned into chart. [employer]Pat reviewed. There is no evidence of misuse, abuse or diversion at this time and documentation is consistent for Butrans patch and oxycodone. Patient has pending scripts for oxycodone was sent with advanced date of 12/31/23 and Butrans patch at 20 mcg/hr script sent on 11/30/23. Will obtain random serum buprenorphine level today. All questions were answered and patient is in agreement of plan. Follow up in one month for pill/patch count and sooner if needed. Coding Level of Care Code Est Pt Level 4 (97754) Diagnoses Chronic pain G89.29 Osteoarthritis of right hip M16.11 Opioid contract exists Z79.891 Chronic right hip pain M25.551; G89.29 Recurrent falls R29.6
[2023-12-03 09:35] VITALS: BP 122/60; PULSE 77; O2SAT 98; BMI 25.5
== END 2023-12-03 09:43 | disposition home or self-care (01) ==
PROVIDERS: PCP Nurse Practitioner Family; Visit Provider Nurse Practitioner Family
DX: G89.29 Other chronic pain (principal); M16.11 Unilateral primary osteoarthritis, right hip; Z79.891 Long term (current) use of opiate analgesic; M25.551 Pain in right hip; R29.6 Repeated falls
CPT/HCPCS: 99214

== ENCOUNTER → 2023-12-03 09:25 | Outpatient (BNVA) | payer MEDICARE, MEDICAID, SELFPAY | PROVIDERS: PCP Nurse Practitioner Family; Visit Provider Nurse Practitioner Family | DX: Z51.81 Encounter for therapeutic drug level monitoring (principal); M16.11 Unilateral primary osteoarthritis, right hip; M25.551 Pain in right hip; R29.6 Repeated falls; Z79.891 Long term (current) use of opiate analgesic | CPT/HCPCS: 80348; 80362; 99212 ==

== ENCOUNTER 2023-12-03 09:47 | Outpatient (REF) | payer MEDICARE, MEDICAID, SELFPAY ==
[2023-12-10 08:03] LABS: Naloxone NEGATIVE; Norbuprenorphine >2000 (H)
== END 2023-12-03 09:48 | disposition home or self-care (01) ==
LOC: HO.10HDLNP 09:47
PROVIDERS: Visit Provider Nurse Practitioner Family
DX: Z13.89 Encounter for screening for other disorder (principal)
CPT/HCPCS: 80348; 80362

== ENCOUNTER → 2023-12-31 09:42 | Outpatient (BNVA) | payer MEDICARE, MEDICAID, SELFPAY | PROVIDERS: PCP Nurse Practitioner Family; Visit Provider Nurse Practitioner Family | DX: Z51.81 Encounter for therapeutic drug level monitoring (principal); M16.11 Unilateral primary osteoarthritis, right hip; M25.551 Pain in right hip; R29.6 Repeated falls; G89.29 Other chronic pain; Z79.891 Long term (current) use of opiate analgesic | CPT/HCPCS: 99212 ==

== ENCOUNTER 2023-12-31 09:43 | Outpatient (AMB) | payer MEDICARE, MEDICAID, SELFPAY ==
--- NOTE | 2023-12-31 09:44 | A.OFFVIS_ITS ---
Intake Vital Signs 12/31/23 10:00 Height 5 ft 4 in Weight 155 lb BMI 26.6 BP 122/60 Blood Pressure Location Lt brachial Position Sitting Respiration 16 Pulse 58 Pulse Source Pulse Oximeter Pulse Oximetry (%) 99 Oxygen Delivery Method Room Air Intake Visit Reasons: Pill Count Intake Note: Patient comes in for pill count. Reports pain 05/03. Allergies lisinopril Adverse Reaction (Unknown, Verified 12/31/23 10:01) Nausea HPI HPI Comments History of Present Illness Details Patient returns today for a pill and patch count. This patient is supposed to have #0pills and #0 Butrans patches according to the medication log signed by the nurses at [facility] for oxycodone-acetaminophen and Butrans patch. In his possession, patient presents with #2 pills and #0 butrans patches and has one patch on which was place this morning at 0500. Patient reports adequate analgesia on his current regimen without noted side. Denies any recent cough, fever, cold, infection, shortness of breath, nausea, constipation, dizziness, weakness, or any other significant changes in medical history since last office visit. Patient reports he has been walking more and enjoys outdoors and indoor activities since improved vision with recent cataracts surgery. Denies recent falls, trauma or injuries. Ambulates with a cane. Reports right lower extremity weakness due to chronic pain. [facility] Medical History (Updated 12/31/23 @ 10:53 by JET Staples) Atherosclerosis of lower extremity with claudication Other specific joint derangements of right hip, not elsewhere classified Chronic pain Pulmonary embolism Acute pulmonary embolism Occlusion of left carotid artery Bruit of left carotid artery Dyslipidemia Anxiety and depression HTN (hypertension) CAD (coronary artery disease) History of [place] (myocardial infarction) Surgical History (Updated 12/31/23 @ 10:53 by JET Staples) History of cataract surgery S/P CABG x 4 Family History Father CHF (congestive heart failure) CVD (cardiovascular disease) Mother Diabetes Social History Household Members Other:: Lives at [place], [place] Housing: Assisted Living Facility Alcohol intake: never Patient Tobacco Use Status: Current everyday Tobacco user Cigarettes Per Day: 5 e-Cigarette/Vaping Use: Never Used Second Hand Smoke Exposure: No Current occupational status: retired 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 Alert and oriented. Mood and affect appropriate. Follows and participates in conversation appropriately. Respiratory effort is unlabored. Able to transition from sit to stand unassisted. Uses cane with ambulation. Extrem General: Yes capillary refill normal, Yes no clubbing, cyanosis or edema and Yes no calf tenderness Right lower extremity: hip/thigh (Limited ROM due to pain. Right groin pain with limited I/E hip rotations. ) Details: tenderness Location: of the hip Location: laterally and anterolaterally Psych Appearance: grossly normal Mental Status: mental status grossly normal Speech and movement: Normal speech and movement present Affect: normal affect Attitude: cooperative Thought process: Normal thought process present Thought content: Normal thought content present, suicidality (none), no hallucinations and No Depressive thoughts present Insight: Good insight present (Psych) Judgement: Good judgement present (Psych) Results Reviewed Results Reviewed: No imaging available for review. Assessment & Plan Assessment & Plan (1) Osteoarthritis of right hip: Code(s): M16.11 - Unilateral primary osteoarthritis, right hip (2) Opioid contract exists: Code(s): Z79.891 - USP (current) use of opiate analgesic (3) Chronic right hip pain: Code(s): M25.551 - Pain in right hip; G89.29 - Other chronic pain (4) Recurrent falls: Code(s): R29.6 - Repeated falls (5) Chronic pain syndrome: Code(s): G89.4 - Chronic pain syndrome Plan Patient returns today for a medication count. Patient brought in paperwork and logs from [facility], which were scanned into chart. [employer]Pat reviewed. There is no evidence of misuse, abuse or diversion at this time and documentation is consistent for Butrans patch and oxycodone. Refills sent for oxycodone and Butrans patch at 20 mcg/hr today. Recent random serum buprenorphine level and UDS came back concordant. All questions were answered and patient is in agreement of plan. Follow up in one month for pill/patch count and sooner if needed. Medications: Refilled buprenorphine 20 mcg/hour Partial Fill upon patient request. 1 patch transdermal Q7D 4 ea 0RF pain 28 days G89.29 - Other chronic pain, M16.11 - Unilateral primary osteoarthritis, right hip oxycodone-acetaminophen 5-325 mg 1 tab PO DAILY 30 days PRN 30 tabs 0RF pain, severe G89.29 - Other chronic pain, M16.11 - Unilateral primary osteoarthritis, right hip Coding Level of Care Code Est Pt Level 4 (52940) Diagnoses Osteoarthritis of right hip M16.11 Opioid contract exists Z79.891 Chronic right hip pain M25.551; G89.29 Recurrent falls R29.6 Chronic pain syndrome G89.4
[2023-12-31 10:00] VITALS: BP 122/60; PULSE 58; RESP 16; O2SAT 99; BMI 26.6
== END 2023-12-31 10:13 | disposition home or self-care (01) ==
PROVIDERS: PCP Nurse Practitioner Family; Visit Provider Nurse Practitioner Family
DX: G89.4 Chronic pain syndrome (principal); M16.11 Unilateral primary osteoarthritis, right hip; M25.551 Pain in right hip; Z79.891 Long term (current) use of opiate analgesic; R29.6 Repeated falls
CPT/HCPCS: 99214

== ENCOUNTER 2024-01-31 09:52 | Outpatient (AMB) | payer OTHER, SELFPAY ==
--- NOTE | 2024-01-31 09:50 | MHC.OFFVIS ---
Intake Vital Signs 01/31/24 10:02 Height 5 ft 4 in Weight 157 lb BMI 26.9 BP 149/67 H Blood Pressure Location Rt brachial Position Sitting Pulse 61 Pulse Source Pulse Oximeter Pulse Oximetry (%) 96 Oxygen Delivery Method Room Air Intake Visit Reasons: Pill Count Intake Note: Ed comes in today for a pill count to oxycodone-acetaminophen and a patch count to buprenorphine. We are still awaiting paperwork from [facility] to confirm the amount of tablets an patches. Patient should have 0 tablets of oxycodone-acetaminophen and 0 patches of Butrans and one currently on which was placed on 01/28/24. Lapel Padder Required: No Accompanied by: Self / Same As Patient Allergies lisinopril Adverse Reaction (Unknown, Verified 12/31/23 10:01) Nausea HPI HPI Comments History of Present Illness Details Patient returns today for a pill and patch count. This patient is supposed to have #0 pills and #0 Butrans patches according to the medication log signed by the nurses at [facility] for oxycodone-acetaminophen and Butrans patch as well as expected pill and patch count. Patient states he was taking oxycodone on daily basis for chronic hip pain. We are still awaiting additional paperwork from [facility] to confirm this. In his possession, patient presents with #0 pills and #0 Butrans patches and has one patch on which was placed on 01/28/24. Patient reports adequate analgesia on his current regimen without noted side. Denies any recent cough, fever, cold, infection, shortness of breath, nausea, constipation, dizziness, weakness, or any other significant changes in medical history since last office visit. Ambulates with a cane. Reports right lower extremity weakness due to chronic pain. [facility] Medical History Atherosclerosis of lower extremity with claudication Other specific joint derangements of right hip, not elsewhere classified Chronic pain Pulmonary embolism Acute pulmonary embolism Occlusion of left carotid artery Bruit of left carotid artery Dyslipidemia Anxiety and depression HTN (hypertension) CAD (coronary artery disease) History of [place] (myocardial infarction) Surgical History History of cataract surgery S/P CABG x 4 Family History Father CHF (congestive heart failure) CVD (cardiovascular disease) Mother Diabetes Social History Household Members Other:: Lives at [place], [place] Housing: Assisted Living Facility Alcohol intake: never Patient Tobacco Use Status: Current everyday Tobacco user Cigarettes Per Day: 5 e-Cigarette/Vaping Use: Never Used Second Hand Smoke Exposure: No Current occupational status: retired Current occupation: Disabled m,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 Alert and oriented. Mood and affect appropriate. Follows and participates in conversation appropriately. Respiratory effort is unlabored. Able to transition from sit to stand unassisted. Uses cane with ambulation. Extrem General: Yes capillary refill normal, Yes no clubbing, cyanosis or edema and Yes no calf tenderness Right lower extremity: hip/thigh (Limited ROM due to pain. Right groin pain with limited I/E hip rotations. ) Details: tenderness Location: of the hip Location: laterally and anterolaterally Psych Appearance: grossly normal Mental Status: mental status grossly normal Speech and movement: Normal speech and movement present Affect: normal affect Attitude: cooperative Thought process: Normal thought process present Thought content: Normal thought content present, suicidality (none), no hallucinations and No Depressive thoughts present Insight: Good insight present (Psych) Judgement: Good judgement present (Psych) Assessment & Plan Assessment & Plan (1) Osteoarthritis of right hip: Code(s): M16.11 - Unilateral primary osteoarthritis, right hip (2) Opioid contract exists: Code(s): Z79.891 - 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 Patient brought in paperwork and logs from [facility], which were scanned into chart and awaiting additional paperwork. [employer] reviewed. There is no evidence of misuse, abuse or diversion at this time and documentation is consistent for Butrans patch and oxycodone. Refills sent for oxycodone and Butrans patch at 20 mcg/hr and oxycodone-acetaminophen 5-325 mg 1 tab daily prn today. Recent random serum buprenorphine level and UDS came back concordant. All questions were answered and patient is in agreement of plan. Follow up in one month for pill/patch count and sooner if needed. Medications: Refilled oxycodone-acetaminophen 5-325 mg 1 tab PO DAILY PRN 30 tabs 0RF pain, severe 30 days G89.29 - Other chronic pain, M16.11 - Unilateral primary osteoarthritis, right hip buprenorphine 20 mcg/hour Partial Fill upon patient request. 1 patch transdermal Q7D 4 ea 0RF pain 28 days G89.29 - Other chronic pain, M16.11 - Unilateral primary osteoarthritis, right hip Coding Level of Care Code Est Pt Level 4 (13928) Diagnoses Osteoarthritis of right hip M16.11 Opioid contract exists Z79.891 Chronic right hip pain M25.551; G89.29 Recurrent falls R29.6 Chronic pain syndrome G89.4
[2024-01-31 10:02] VITALS: BP 149/67; PULSE 61; O2SAT 96; BMI 26.9
== END 2024-01-31 10:20 | disposition home or self-care (01) ==
PROVIDERS: PCP Nurse Practitioner Family; Visit Provider Nurse Practitioner Family
DX: G89.4 Chronic pain syndrome (principal); M16.11 Unilateral primary osteoarthritis, right hip; M25.551 Pain in right hip; Z79.891 Long term (current) use of opiate analgesic; G89.29 Other chronic pain; R29.6 Repeated falls
CPT/HCPCS: 99214

== ENCOUNTER → 2024-01-31 09:52 | Outpatient (BNVA) | payer OTHER, SELFPAY | PROVIDERS: PCP Nurse Practitioner Family; Visit Provider Nurse Practitioner Family | DX: M16.11 Unilateral primary osteoarthritis, right hip (principal); M25.551 Pain in right hip; G89.4 Chronic pain syndrome; R29.6 Repeated falls; Z79.891 Long term (current) use of opiate analgesic | CPT/HCPCS: 99212 ==

== ENCOUNTER 2024-02-28 09:50 | Outpatient (AMB) | payer OTHER, SELFPAY ==
--- NOTE | 2024-02-28 09:53 | A.OFFVIS_ITS ---
Vital Signs 02/28/24 10:03 Height 5 ft 4 in Weight 155 lb 2 oz BMI 26.6 BP 175/79 H Blood Pressure Location Rt brachial Position Sitting Pulse 65 Pulse Source Pulse Oximeter Pulse Oximetry (%) 96 Oxygen Delivery Method Room Air Intake Visit Reasons: PILL COUNT Intake Note: Mac comes in today for a pill count to oxycodone-acetaminophen and a patch count to buprenorphine. Patient should have 3 tablets of oxycodone-acetaminophen and presents with 4 tablets which he last took today 02/28/24 at 5am, patches should have 0 and presents with 0 and 1 currently on which was last placed on 02/25/24. Pain today 02/01 Allergies lisinopril Adverse Reaction (Unknown, Verified 12/31/23 10:01) Nausea HPI Comments Details: Patient returns today for a pill and patch count. This patient is supposed to have #3 pills and #0 Butrans patches according to the medication log signed by t nurses at [facility] for oxycodone-acetaminophen and Butrans patch as well as expected pill and patch count. Patient states he was taking oxycodone on daily basis for chronic hip pain. Per chart documentation review, patient has #4 pills and #0 Butrans patches and has one patch on which was placed on 02/25/24. Patient reports adequate analgesia on his current regimen without noted side. He reports with new insurance plan, he has some extra money allocated for food and he is happy to increase fresh fruit and vegetables in his dietary intake. Denies any recent cough, fever, cold, infection, shortness of breath, nausea, constipation, dizziness, weakness, or any other significant changes in medical history since last office visit. Ambulates with a cane. [facility] Medical History Anxiety with depression Atherosclerosis of lower extremity with claudication Other specific joint derangements of right hip, not elsewhere classified Chronic pain Pulmonary embolism Acute pulmonary embolism Occlusion of left carotid artery Bruit of left carotid artery Dyslipidemia Anxiety and depression HTN (hypertension) CAD (coronary artery disease) History of [place] (myocardial infarction) Surgical History History of cataract surgery S/P CABG x 4 Family History Father CHF (congestive heart failure) CVD (cardiovascular disease) Mother Diabetes Social History Household Members Other:: Lives at [place], [place] Housing: Assisted Living Facility Alcohol intake: never Patient Tobacco Use Status: Current everyday Tobacco user Cigarettes Per Day: 5 e-Cigarette/Vaping Use: Never Used Second Hand Smoke Exposure: No Current occupational status: retired 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 Alert and oriented. Mood and affect appropriate. Follows and participates in conversation appropriately. Respiratory effort is unlabored. Able to transition from sit to stand unassisted. Uses cane with ambulation. Extrem General: Yes capillary refill normal, Yes no clubbing, cyanosis or edema and Yes no calf tenderness Right lower extremity: hip/thigh (Limited ROM due to pain. Right groin pain with limited I/E hip rotations. ) Details: tenderness Location: of the hip Location: laterally and anterolaterally Psych Appearance: grossly normal Mental Status: mental status grossly normal Speech and movement: Normal speech and movement present Affect: normal affect Attitude: cooperative Thought process: Normal thought process present Thought content: Normal thought content present, suicidality (none), no hallucinations and No Depressive thoughts present Insight: Good insight present (Psych) Judgement: Good judgement present (Psych) Assessment & Plan Assessment & Plan (1) Osteoarthritis of right hip: Code(s): M16.11 - Unilateral primary osteoarthritis, right hip Category: Medical (2) Opioid contract exists: Code(s): Z79.891 - alf (current) use of opiate analgesic Category: Medical (3) Chronic right hip pain: Code(s): M25.551 - Pain in right hip; G89.29 - Other chronic pain Category: Medical (4) Chronic pain syndrome: Code(s): G89.4 - Chronic pain syndrome Category: Medical Plan Patient returns today for a medication count. Patient brought in paperwork and logs from [facility], which were scanned into chart. [employer] reviewed. There is no evidence of misuse, abuse or diversion at this time and documentation is consistent for Butrans patch and oxycodone. Refills sent for oxycodone and Butrans patch at 20 mcg/hr today. All questions were answered and patient is in agreement of plan. Follow up in one month for pill/patch count and sooner if needed. Medications: Refilled oxycodone-acetaminophen 5-325 mg 1 tab PO DAILY 30 days PRN 30 tabs 0RF pain, severe G89.29 - Other chronic pain, M16.11 - Unilateral primary osteoarthritis, right hip buprenorphine 20 mcg/hour Partial Fill upon patient request. 1 patch transdermal Q7D 28 days 4 ea 0RF pain G89.29 - Other chronic pain, M16.11 - Unilateral primary osteoarthritis, right hip Coding Level of Care Code Est Pt Level 4 (35214) Diagnoses Osteoarthritis of right hip M16.11 Opioid contract exists Z79.891 Chronic right hip pain M25.551; G89.29 Chronic pain syndrome G89.4
[2024-02-28 10:03] VITALS: BP 175/79; PULSE 65; O2SAT 96; BMI 26.6
== END 2024-02-28 10:13 | disposition home or self-care (01) ==
PROVIDERS: PCP Nurse Practitioner Family; Visit Provider Nurse Practitioner Family
DX: G89.4 Chronic pain syndrome (principal); M25.551 Pain in right hip; M16.11 Unilateral primary osteoarthritis, right hip; Z79.891 Long term (current) use of opiate analgesic; G89.29 Other chronic pain
CPT/HCPCS: 99214

== ENCOUNTER → 2024-02-28 09:50 | Outpatient (BNVA) | payer OTHER, SELFPAY | PROVIDERS: PCP Nurse Practitioner Family; Visit Provider Nurse Practitioner Family | DX: Z51.81 Encounter for therapeutic drug level monitoring (principal); M16.11 Unilateral primary osteoarthritis, right hip; M25.551 Pain in right hip; G89.29 Other chronic pain; Z79.891 Long term (current) use of opiate analgesic | CPT/HCPCS: 99212 ==

== ENCOUNTER 2024-03-28 10:32 | Outpatient (AMB) | payer MEDICARE, MEDICAID, SELFPAY ==
--- NOTE | 2024-03-28 10:35 | MHC.OFFVIS ---
Vital Signs 03/28/24 10:41 Height 5 ft 4 in Weight 156 lb 8 oz BMI 26.9 BP 178/74 H Blood Pressure Location Lt brachial Position Sitting Pulse 63 Pulse Source Pulse Oximeter Pulse Oximetry (%) 97 Oxygen Delivery Method Room Air Intake Visit Reasons: PILL COUNT Intake Note: Mac comes in today for a pill count to oxycodone-acetaminophen and a patch count to buprenorphine, patient should have 1 tablet of oxycodone-acetaminophen and presents with 5 tablets which he last took today 03/28/24 at 5am. Buprenorphine should have 0 patches and presents with 0 patches and 1 currently on which was last placed on 03/24/24. 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 This patient is supposed to have #1 pills and #0 Butrans patches. According to the medication log signed by the nurses at [facility] for oxycodone-acetaminophen #5 pills and Butrans patch #0 and one has been placed on 03/24/24. Patient reports adequate analgesia on his current regimen without noted side. He reports 8-9/10 right hip pain most severe in the morning which decreases to 4-5/10 after he takes his opioid medication. Patient was previously evaluated by Orthopedic provider and received cortisone right hip injections with temporary relief. He declined interventional treatments at this time. Denies any recent cough, fever, cold, infection, shortness of breath, nausea, constipation, dizziness, weakness, or any other significant changes in medical history since last office visit. Ambulates with a cane. [facility] Medical History Anxiety with depression Atherosclerosis of lower extremity with claudication Other specific joint derangements of right hip, not elsewhere classified Chronic pain Pulmonary embolism Acute pulmonary embolism Occlusion of left carotid artery Bruit of left carotid artery Dyslipidemia Anxiety and depression HTN (hypertension) CAD (coronary artery disease) History of [place] (myocardial infarction) Surgical History History of cataract surgery S/P CABG x 4 Family History Father CHF (congestive heart failure) CVD (cardiovascular disease) Mother Diabetes Social History Household Members Other:: Lives at [place], [place] Housing: Assisted Living Facility Alcohol intake: never Patient Tobacco Use Status: Current everyday Tobacco user Cigarettes Per Day: 5 e-Cigarette/Vaping Use: Never Used Second Hand Smoke Exposure: No Current occupational status: retired Current occupation: Disabled m,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 No acute distress. Alert and oriented. Mood and affect appropriate. Follows and participates in conversation appropriately. Respiratory effort is unlabored. No cough. Able to transition from sit to stand unassisted. Uses cane with ambulation. Extrem General: Yes capillary refill normal, Yes no clubbing, cyanosis or edema and Yes no calf tenderness Right lower extremity: hip/thigh (Limited ROM due to pain. Right groin pain with limited I/E hip rotations. ) Details: tenderness Location: of the hip Location: laterally and anterolaterally and crepitus; no ecchymosis and no unusual warmth Psych Appearance: grossly normal Mental Status: mental status grossly normal Speech and movement: Normal speech and movement present Affect: normal affect Attitude: cooperative Thought process: Normal thought process present Thought content: Normal thought content present, suicidality (none), no hallucinations and No Depressive thoughts present Insight: Good insight present (Psych) Judgement: Good judgement present (Psych) Results Reviewed Results Reviewed: No imaging available for review. 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 Patient brought in paperwork and logs from [facility], which were scanned into chart. [employer]Pat reviewed. There is no evidence of misuse, abuse or diversion at this time and documentation is consistent for Butrans patch and oxycodone. Refills sent for oxycodone and Butrans patch at 20 mcg/hr today. Narcan script was provided in Feb, 2023. All questions were answered and patient is in agreement of plan. Follow up in one month for pill/patch count and sooner if needed. Medications: Refilled oxycodone-acetaminophen 5-325 mg 1 tab PO DAILY 30 days PRN 30 tabs 0RF pain, severe G89.29 - Other chronic pain, M16.11 - Unilateral primary osteoarthritis, right hip buprenorphine 20 mcg/hour Partial Fill upon patient request. 1 patch transdermal Q7D 28 days 4 ea 0RF pain G89.29 - Other chronic pain, M16.11 - Unilateral primary osteoarthritis, right hip Coding Level of Care Code Est Pt Level 4 (73392) Diagnoses Osteoarthritis of right hip M16.11 Opioid contract exists Z79.891 Chronic right hip pain M25.551; G89.29 Chronic pain syndrome G89.4
[2024-03-28 10:41] VITALS: BP 178/74; PULSE 63; O2SAT 97; BMI 26.9
== END 2024-03-28 10:46 | disposition home or self-care (01) ==
LOC: HO.PMC 10:32
PROVIDERS: PCP Nurse Practitioner Family; Visit Provider Nurse Practitioner Family
DX: G89.4 Chronic pain syndrome (principal); M16.11 Unilateral primary osteoarthritis, right hip; M25.551 Pain in right hip; Z79.891 Long term (current) use of opiate analgesic; G89.29 Other chronic pain
CPT/HCPCS: 99214

== ENCOUNTER → 2024-03-28 10:32 | Outpatient (BNVA) | payer MEDICARE, MEDICAID, SELFPAY | PROVIDERS: PCP Nurse Practitioner Family; Visit Provider Nurse Practitioner Family | DX: G89.4 Chronic pain syndrome (principal); M16.11 Unilateral primary osteoarthritis, right hip; Z79.891 Long term (current) use of opiate analgesic | CPT/HCPCS: 99212 ==

== ENCOUNTER 2024-05-01 09:34 | Outpatient (AMB) | payer MEDICARE, MEDICAID, SELFPAY ==
--- NOTE | 2024-05-01 09:38 | MHC.OFFVIS ---
Vital Signs 05/01/24 09:45 Height 5 ft 4 in Weight 156 lb BMI 26.8 BP 145/66 H Blood Pressure Location Rt brachial Position Sitting Pulse 61 Pulse Source Pulse Oximeter Pulse Oximetry (%) 97 Oxygen Delivery Method Room Air Intake Visit Reasons: Pill Count Intake Note: Mac comes in today for a pill count to oxycodone-acetaminophen and a patch count to buprenorphine. Patient should have 0 tablets of oxycodone-acetaminophen and presents with 0 tablet which he last took today 05/01/24 at 5am, buprenorohine should have 0 patches and presents with 0 patches and 1 currently on which was last placed 04/22/24. 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 This patient is supposed to have #0 pills and #0 Butrans patches. According to the medication log signed by the nurses at [facility] for oxycodone-acetaminophen #0 pills and Butrans patch #0 and one has been placed on 04/22/24. Patient reports he was told by nurses that new Butrans patch are being delivered from pharmacy today. Patient reports adequate analgesia on his current regimen without noted side. He reports 5/10 right hip pain most severe in the morning and decreases with opioid medication and activity modifications. Denies any recent cough, fever, cold, infection, shortness of breath, nausea, constipation, dizziness, weakness, or any other significant changes in medical history since last office visit. Ambulates with a cane. [facility] Medical History Anxiety with depression Atherosclerosis of lower extremity with claudication Other specific joint derangements of right hip, not elsewhere classified Chronic pain Pulmonary embolism Acute pulmonary embolism Occlusion of left carotid artery Bruit of left carotid artery Dyslipidemia Anxiety and depression HTN (hypertension) CAD (coronary artery disease) History of [place] (myocardial infarction) Surgical History History of cataract surgery S/P CABG x 4 Family History Father CHF (congestive heart failure) CVD (cardiovascular disease) Mother Diabetes Social History Household Members Other:: Lives at [place], [place] Housing: Assisted Living Facility Alcohol intake: never Patient Tobacco Use Status: Current everyday Tobacco user Cigarettes Per Day: 5 e-Cigarette/Vaping Use: Never Used Second Hand Smoke Exposure: No Current occupational status: retired Current occupation: Disabled m,any 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 No acute distress. Alert and oriented. Mood and affect appropriate. Follows and participates in conversation appropriately. Respiratory effort is unlabored. No cough. Able to transition from sit to stand unassisted. Uses cane with ambulation. Extrem General: Yes capillary refill normal, Yes no clubbing, cyanosis or edema and Yes no calf tenderness Right lower extremity: hip/thigh (Mild right groin pain with limited I/E hip rotations. ) Details: tenderness Location: of the hip Location: laterally and anterolaterally and crepitus; no ecchymosis and no unusual warmth Psych Appearance: grossly normal Mental Status: mental status grossly normal Speech and movement: Normal speech and movement present Affect: normal affect Attitude: cooperative Thought process: Normal thought process present Thought content: Normal thought content present, suicidality (none), no hallucinations and No Depressive thoughts present Insight: Good insight present (Psych) Judgement: Good judgement present (Psych) Results Reviewed Results Reviewed: No imaging available for review. 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 Patient brought in paperwork and logs from [facility], which were scanned into chart. [employer] reviewed. There is no evidence of misuse, abuse or diversion at this time and documentation is consistent for Butrans patch and oxycodone. Refills sent for oxycodone today. He has pending script for Butrans patch at 20 mcg/hr today. Narcan script was provided in Feb, 2023. All questions were answered and patient is in agreement of plan. Follow up in one month for pill/patch count and sooner if needed. Medications: Refilled oxycodone-acetaminophen 5-325 mg 1 tab PO DAILY 30 days PRN 30 tabs 0RF pain, severe G89.29 - Other chronic pain, M16.11 - Unilateral primary osteoarthritis, right hip Coding Level of Care Code Est Pt Level 4 (72867) Diagnoses Osteoarthritis of right hip M16.11 Opioid contract exists Z79.891 Chronic right hip pain M25.551; G89.29 Chronic pain syndrome G89.4
[2024-05-01 09:45] VITALS: BP 145/66; PULSE 61; O2SAT 97; BMI 26.8
== END 2024-05-01 09:55 | disposition home or self-care (01) ==
PROVIDERS: PCP Nurse Practitioner Family; Visit Provider Nurse Practitioner Family
DX: G89.4 Chronic pain syndrome (principal); M16.11 Unilateral primary osteoarthritis, right hip; M25.551 Pain in right hip; Z79.891 Long term (current) use of opiate analgesic
CPT/HCPCS: 99214

== ENCOUNTER → 2024-05-01 09:34 | Outpatient (BNVA) | payer MEDICARE, MEDICAID, SELFPAY | PROVIDERS: PCP Nurse Practitioner Family; Visit Provider Nurse Practitioner Family | DX: G89.4 Chronic pain syndrome (principal); M16.11 Unilateral primary osteoarthritis, right hip; Z79.891 Long term (current) use of opiate analgesic | CPT/HCPCS: 99212 ==

== ENCOUNTER 2024-05-29 09:59 | Outpatient (AMB) | payer MEDICARE, MEDICAID, SELFPAY ==
--- NOTE | 2024-05-29 10:01 | A.OFFVIS_ITS ---
Vital Signs 05/29/24 10:13 Height 5 ft 4 in Weight 157 lb BMI 26.9 BP 164/70 H Blood Pressure Location Rt brachial Position Sitting Pulse 55 Pulse Source Pulse Oximeter Pulse Oximetry (%) 97 Oxygen Delivery Method Room Air Intake Visit Reasons: PILL COUNT Intake Note: Ed comes in today for a pill count to oxycodone-acetaminophen and a patch count to buprenorphine. Patient should have 3 patches and presents with 3 patches and 1 currently on which was last placed today 05/29/24. Oxycodone-acetaminophen should have 2 tabs and presents with 2 tablets which he last took today 05/29/24 at 5am. Pain today 4/10. 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 This patient is supposed to have #2 pills and #3 Butrans patches. According to the medication log signed by the nurses at [facility] for oxycodone-acetaminophen #2 pills and Butrans patch #3 and one has been placed on 05/29/24. Patient reports mild to moderate analgesia on his current regimen without noted side. He reports 4/10 right hip pain. 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 Denies any recent cough, fever, cold, infection, shortness of breath, nausea, constipation, dizziness, weakness, or any other significant changes in medical history since last office visit. Ambulates with a cane. [facility] Medical History Anxiety with depression Atherosclerosis of lower extremity with claudication Other specific joint derangements of right hip, not elsewhere classified Chronic pain Pulmonary embolism Acute pulmonary embolism Occlusion of left carotid artery Bruit of left carotid artery Dyslipidemia Anxiety and depression HTN (hypertension) CAD (coronary artery disease) History of [place] (myocardial infarction) Surgical History History of cataract surgery S/P CABG x 4 Family History Father CHF (congestive heart failure) CVD (cardiovascular disease) Mother Diabetes Social History Household Members Other:: Lives at [place], [place] Housing: Assisted Living Facility Alcohol intake: never Patient Tobacco Use Status: Current everyday Tobacco user Cigarettes Per Day: 5 e-Cigarette/Vaping Use: Never Used Second Hand Smoke Exposure: No Current occupational status: retired Current occupation: Disabled m,any 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 No acute distress. Alert and oriented. Mood and affect appropriate. Follows and participates in conversation appropriately. Respiratory effort is unlabored. No cough. Able to transition from sit to stand unassisted. Uses cane with ambulation. Extrem General: Yes capillary refill normal, Yes no clubbing, cyanosis or edema and Yes no calf tenderness Psych Appearance: grossly normal Mental Status: mental status grossly normal Speech and movement: Normal speech and movement present Affect: normal affect Attitude: cooperative Thought process: Normal thought process present Thought content: Normal thought content present, suicidality (none), no hallucinations and No Depressive thoughts present Insight: Good insight present (Psych) Judgement: Good judgement present (Psych) Results Reviewed Results Reviewed: No imaging available for review. Assessment & Plan Assessment & Plan (1) Osteoarthritis of right hip: Code(s): M16.11 - Unilateral primary osteoarthritis, right hip Category: Medical (2) Opioid contract exists: Code(s): Z79.891 - [facility] (current) use of opiate analgesic Category: Medical (3) Chronic right hip pain: Code(s): M25.551 - Pain in right hip; G89.29 - Other chronic pain Category: Medical (4) Chronic pain syndrome: Code(s): G89.4 - Chronic pain syndrome Category: Medical Plan Patient returns today for a medication count. Patient brought in paperwork and logs from [facility], which were scanned into chart. [employer] reviewed. There is no evidence of misuse, abuse or diversion at this time and documentation is consistent for Butrans patch and oxycodone. Refills sent for oxycodone today and Butrans patch at 20 mcg/hr on 05/21/24. Narcan script was provided in Feb, 2023. All questions were answered and patient is in agreement of plan. Follow up in on e month for pill/patch count and sooner if needed. Medications: Refilled oxycodone-acetaminophen 5-325 mg 1 tab PO DAILY 30 days PRN 30 tabs 0RF pain, severe G89.29 - Other chronic pain, M16.11 - Unilateral primary osteoarthritis, right hip buprenorphine 20 mcg/hour 1 patch transdermal QWEEK 28 days 4 ea 1RF pain G89.29 - Other chronic pain, M16.11 - Unilateral primary osteoarthritis, right hip Coding Level of Care Code Est Pt Level 4 (12585) Diagnoses Osteoarthritis of right hip M16.11 Opioid contract exists Z79.891 Chronic right hip pain M25.551; G89.29 Chronic pain syndrome G89.4
[2024-05-29 10:13] VITALS: BP 164/70; PULSE 55; O2SAT 97; BMI 26.9
== END 2024-05-29 10:28 | disposition home or self-care (01) ==
PROVIDERS: PCP Nurse Practitioner Family; Visit Provider Nurse Practitioner Family
DX: G89.4 Chronic pain syndrome (principal); M16.11 Unilateral primary osteoarthritis, right hip; M25.551 Pain in right hip; Z79.891 Long term (current) use of opiate analgesic; G89.29 Other chronic pain
CPT/HCPCS: 99214

== ENCOUNTER → 2024-05-29 09:59 | Outpatient (BNVA) | payer MEDICARE, MEDICAID, SELFPAY | PROVIDERS: PCP Nurse Practitioner Family; Visit Provider Nurse Practitioner Family | DX: M16.11 Unilateral primary osteoarthritis, right hip (principal); G89.4 Chronic pain syndrome; Z51.81 Encounter for therapeutic drug level monitoring; Z79.891 Long term (current) use of opiate analgesic | CPT/HCPCS: 99212 ==

== ENCOUNTER 2025-04-05 12:02 | Outpatient (AMB) | payer MEDICARE, MEDICAID, SELFPAY ==
[2025-04-05 12:20] VITALS: BP 132/58; PULSE 57; RESP 18; TEMP 36.5; O2SAT 97; BMI 26.3
--- NOTE | 2025-04-05 12:20 | MHC.PC.OV ---
Vital Signs 04/05/25 12:20 Height 5 ft 4 in Weight 153 lb BMI 26.3 BP 132/58 L Blood Pressure Location Rt brachial Position Sitting Respiration 18 Pulse 57 Pulse Source Pulse Oximeter Temp 97.7 F Temp Source Oral Pulse Oximetry (%) 97 Oxygen Delivery Method Room Air Intake Visit Reasons: Annual PE/Last seen 2022 - see comments Intake Note: Pt is here today for PE. Allergies lisinopril Adverse Reaction (Unknown, Verified 04/05/25 12:40) Nausea Medication List - Last Reconciled 04/05/25 by Shahab Riley, [facility]- acetaminophen 1,000 mg PO Q4H PRN apixaban (Eliquis) 5 mg PO BID aspirin 81 mg PO DAILY 90 days bempedoic acid (Nexletol) 180 mg PO DAILY 90 days bisacodyl (Dulcolax (bisacodyl)) 10 mg PA DAILY PRN escitalopram oxalate (Lexapro) 10 mg PO DAILY 90 days ezetimibe (Zetia) 10 mg PO DAILY 90 days fenofibrate nanocrystallized 145 mg PO DAILY 90 days ferrous sulfate 325 mg PO DAILY 90 days furosemide 20 mg PO DAILY 30 days hydralazine 25 mg PO BID 30 days isosorbide mononitrate ER 120 mg PO DAILY melatonin 3 mg PO BEDTIME metoprolol tartrate 50 mg PO BID 30 days nitroglycerin 0.4 mg sublingual Q5M PRN potassium chloride ER 10 mEq PO BID 30 days [quad cane daily use] ranolazine ER 500 mg PO BID 30 days rosuvastatin 40 mg PO DAILY trazodone 50 mg PO BEDTIME PRN Tobacco use date assessed: 04/05/25 Fall risk assessment: 1 Fall in past year Last assessed Fall Risk: 04/05/25 Dental Screening Dental Screen Date: 04/05/25 Did you have a dental visit in the last 12 months?: No Did you have a dental problem in the last 6 months where you did not have access to dental care?: No Was dental information given to patient?: Patient declined HPI Annual PE/Last seen 2022 - see comments HPI Details History of Present Illness The patient is a 74-year-old male presenting with a need for a physical examination. He has a history of tobacco use disorder and is not interested in pursuing a low-dose CT scan for lung cancer screening or follow-up with cardiology, or any other specialist. Jacque is up to date. Peripheral artery disease has been noted, with recommendations for vascular follow-up, which the patient has declined. There is discoloration in the bilateral lower extremities and a weak pedal pulse in the right dorsalis pedis, with the left pulse not palpable. The patient experiences hip pain, for which he uses a cane, but he is not interested in seeing other providers for this issue. Carotid artery stenosis is suspected due to bilateral carotid bruits, but the patient is not interested in any ultrasound testing or further evaluation. Health Maintenance Social History - Tobacco use: Patient smokes and is not interested in cessation interventions. Review of Systems Physical Exam General: Cooperative, healthy appearing, comfortable, no acute distress and well developed, uses a cane Orientation: Patient oriented x3 Limitations: Uses a cane due to hip pain Head: Normal to inspection Ears: Hearing grossly normal bilaterally Nose: Normal external nose present Face and sinus: Normal facial exam Eyes: Appearance normal, both eyes and all related structures Neck: Normal visual inspection and Yes full ROM Respiratory: Normal respiratory effort and able to speak in complete sentences. Clear to auscultation bilaterally Cardiovascular: Difficult to auscultate heart, very soft. S1 S2 noted. Carotid bruits bilaterally GI: Normal to inspection. Soft to palpation and nontender : Genital exam and scrotal exam declined Skin: Discoloration to bilateral lower extremities Neuro: Patient oriented x3 Extremities: Weak pedal pulse to the right dorsalis pedis, unable to find left pulse. Sensation present Results Plan The patient has declined further diagnostic testing and specialist consultations for his conditions, including tobacco use disorder, peripheral artery disease, and suspected carotid artery stenosis. He is not interested in a low-dose CT scan for lung cancer screening or follow-up with cardiology, vascular, or any other specialists. Management of his hip pain is limited to the use of a cane, as he has declined further evaluation or intervention. Discussion Notes During the visit, I discussed the importance of follow-up with specialists for his peripheral artery disease and carotid artery stenosis, as well as the benefits of a low-dose CT scan for lung cancer screening due to his smoking history. However, the patient declined all recommendations for further testing and specialist consultations. Patient Instructions [facility] Medical History Anxiety with depression Atherosclerosis of lower extremity with claudication Other specific joint derangements of right hip, not elsewhere classified Chronic pain Pulmonary embolism Acute pulmonary embolism Occlusion of left carotid artery Bruit of left carotid artery Dyslipidemia Anxiety and depression HTN (hypertension) CAD (coronary artery disease) History of IA (myocardial infarction) Surgical History History of cataract surgery S/P CABG x 4 Family History Father CHF (congestive heart failure) CVD (cardiovascular disease) Mother Diabetes Social History Household Members Other:: Lives at [place], [place] Housing: Assisted Living Facility Alcohol intake: never Patient Tobacco Use Status: Current everyday Tobacco user Cigarettes Per Day: 5 e-Cigarette/Vaping Use: Never Used Second Hand Smoke Exposure: No service: No Current occupational status: retired Current occupation: Disabled m,any years 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 1. Little interest or pleasure in doing things: more than half the days 2. Feeling down, depressed, or hopeless: several days 3. Trouble falling or staying asleep, or sleeping too much: several days 4. Feeling tired or having little energy: more than half the days 5. Poor appetite or overeating: several days 6. Feeling bad about yourself - or that you are a failure or have let yourself or your family down: not at all 7. Trouble concentrating on things, such as reading the newspaper or watching television: more than half the days 8. Moving or speaking so slowly that other people could have noticed. Or the opposite - being so fidgety or restless that you have been moving around a lot more than usual: not at all 9. Thoughts that you would be better off or of hurting yourself in some way: not at all Total score: 9 Depression Screening Interpretation: Positive (denies any si or hi) Depression Screening Follow-up: Existing condition and Declines treatment Depression Screening Done: Yes 88947 - PHQ-9 Billing: Yes Source: Developed by Drs. Ray Richards, Farhana Lloyd, Mart Martinez and colleagues, with an educational jennifer from [employer]. Thrive Questionnaire Date Thrive assessed: 04/05/25 I am a: Patient What is your living situation today?: I have a steady place to live Within the past 12 months, did the food you bought not last and you didn't have the money to get more?: Never true Within the past 12 months, did you worry whether your food would run out before you got money to buy more?: Never true Do you have trouble paying for medicines?: No Do you have trouble getting transportation to medical appointments?: No Do you have trouble paying your heating and electricity bill?: No Do you have trouble taking care of your child, family member or friend?: No Do you have trouble with day-to-day activities such as bathing, preparing meals, shopping, managing finances, etc.?: No Are you currently unemployed and looking for a job?: No Are you interested in more education?: No Please select the resources that you would like help with: None THRIVE Score: 0 AUDIT C Alcohol Use Questionnaire (AUDIT-C) 1. How often do you have a drink containing alcohol?: Never 3. How often do you have six or more drinks on one occasion?: Never Total Score: 0 TRACY-7 AMB Questionnaire TRACY-7 Date TRACY - 7 assessed: 04/05/25 Feeling nervous, anxious, or on edge: 3 = Nearly every day Not being able to stop or control worryin = Several days Worrying too much about different things: 1 = Several days Trouble relaxin = More than half the days Being so restless that it is hard to sit still: 0 = Not at all Becoming easily annoyed or irritable: 3 = Nearly every day Feeling afraid as if something awful might happen: 3 = Nearly every day Total TRACY-7 score (0-4 normal; 5-9 mild; 10-14 moderate; 15-21 severe): 13 Source: Developed by Drs. Ray Richards, Mart Brennan and colleagues, with an educational jennifer from [employer]. TRACY-7 Assessment Billing TRACY-7 Assessment Tool: TRACY-7 Assessment 66192 (denies any treatment, denies any si or hi) Physical exam (Primary Care) Vital Signs: Last Vital Signs Temp 97.7 F 04/05/25 12:20 Pulse 57 04/05/25 12:20 Resp 18 04/05/25 12:20 BP 150/78 H 04/05/25 12:20 Pulse Ox 97 04/05/25 12:20 Oxygen Delivery Method Room Air 04/05/25 12:20 BMI result Body Mass Index 26.3 Tobacco/Smoking Status: Tobacco use Status Tobacco use date assessed 04/05/25 04/05/25 12:31 Patient Tobacco Use Status Current everyday Tobacco 04/05/25 12:31 e-Cigarette/Vaping Use Never Used 04/05/25 12:31 PHQ-9: PHQ-9 Score PHQ-9: Total score 9 04/05/25 12:56 Depression Screening Interpretation: Positive (denies any si or hi) Depression Screening Follow-up: Existing condition and Declines treatment Thrive Assessment: Date of Thrive Assessment Date Thrive assessed 04/05/25 04/05/25 12:31 Immunizations pneumoc 20-fernanda conj-dip cr(PF) 0.5 mL IM syringe Performing Provider: LORENZO Monk Performing Location: [facility] Administered by: FILIBERTO Knight on 04/05/25 12:56 Dose Route Admin Location Dispensed Lot Number Expiration Date [facility] [employer] 0.5 mL IM Left Deltoid 0.5 mL [id number] 12/22/25 [employer]/50 Cubes VIS Given Date VIS Provided VIS Publication Date 04/05/25 Single Vaccine 21 Eligibility Eligibility Date Funding Source Not [facility] Eligible 04/05/25 Private Coding Level of Care Code Est Pt Prev Care >65y(10288) Diagnoses Physical exam Z00.00 Vitamin D deficiency E55.9 Additional Codes PHQ-9 - 70368 - PHQ-9 Billing: Yes ([id number]) TRACY-7 Assessment Billing - TRACY-7 Assessment Tool: TRACY-7 Assessment 96816 ([id number]) Assessment & Plan Assessment & Plan (1) Physical exam: Code(s): Z00.00 - Encounter for general adult medical examination without abnormal findings Category: Medical (2) Vitamin D deficiency: Code(s): E55.9 - Vitamin D deficiency, unspecified Category: Medical Plan . Orders: Orders Comprehensive [place]. Panel Fast Today Z00.00 - Encounter for general adult medical examination without abnormal findings TSH reflex Free T4 Today Z00.00 - Encounter for general adult medical examination without abnormal findings Lipid Panel Today Z00.00 - Encounter for general adult medical examination without abnormal findings Vitamin D 25-OH Total Today E55.9 - Vitamin D deficiency, unspecified Pneumococcal 20 Immunization Today Z23 - Encounter for immunization Complete Blood Count Auto Diff Today Z00.00 - Encounter for general adult medical examination without abnormal findings UA CC w/rflx Micro + Cult Today Z00.00 - Encounter for general adult medical examination without abnormal findings
== END 2025-04-05 13:34 | disposition home or self-care (01) ==
LOC: HO.HMCC 12:02
PROVIDERS: PCP Nurse Practitioner Family; Visit Provider Nurse Practitioner Family
DX: Z00.00 Encounter for general adult medical examination without abnormal findings (principal); E55.9 Vitamin D deficiency, unspecified; Z23 Encounter for immunization

== ENCOUNTER → 2025-04-05 12:02 | Outpatient (BNVA) | payer OTHER, SELFPAY | PROVIDERS: PCP Nurse Practitioner Family; Visit Provider Nurse Practitioner Family | DX: Z00.00 Encounter for general adult medical examination without abnormal findings (principal); Z23 Encounter for immunization; E55.9 Vitamin D deficiency, unspecified | CPT/HCPCS: 90471; 90677; 96127; 99397 ==